=== PATIENT | female | born 1960 | race Caucasian/White ===

== ENCOUNTER 2021-10-16 21:51 | Emergency (ER) | payer OTHER, SELFPAY ==
[2021-10-16] VITALS (10 sets, daily range): BP systolic 80–142; BP diastolic 31–92; PULSE 65–90; RESP 18–37; O2SAT 94–100
[2021-10-16] MEDS: LORazepam 2 MG/ML inj 1 MG IVP (22:00)
--- NOTE | 2021-10-16 22:00 | CRLHL7_ITS ---
For Patients: As a result of the Cures Act, medical imaging exams and procedure reports are released immediately into your electronic medical record. You may view this report before your referring provider. If you have questions, please contact your health care provider. INDICATION: Shortness of breath, compare to chest radiograph 2020 and 2018, Short of breath TECHNIQUE: Chest radiograph 1 view COMPARISON: 08/24/2020, 08/09/2018 FINDINGS: The sensitivity and specificity of the exam are moderately limited by the patient`s body habitus. Mediastinum: The mediastinum is normal in appearance. The heart silhouette is normal in size and morphology. There is a left cardiac pacer present with leads in the right atrium and right ventricle. Right Port-A-Cath is noted without change. Lung: Both lungs are unremarkable in appearance with small lung volumes. The right apex obscured by the patient`s chin. No sign of pleural effusion seen. No pneumothorax is identified. Bone and Soft tissue: Unremarkable for age. IMPRESSION: 1. No acute cardiopulmonary disease is seen. Dictated by Dayo Simental MD @ 10/16/2021 11:09:43 PM Dictated by: Dayo Simental MD @ 10/16/2021 23:09:51 (Electronically Signed)
--- NOTE | 2021-10-16 22:00 | ED.SOB ---
HPI - SOB/Dyspnea General Date Seen: 10/16/21 Chief Complaint: Shortness of Breath/Dyspnea Stated Complaint: Respiratory distress Time Seen by Provider: 10/16/21 21:59 Source: patient, family and EMS Mode of arrival: EMS Limitations: language barrier History of Present Illness HPI Narrative: Patient is 61-year-old female with the history of a panic attack that started approximately 30 minutes before being seen, she called EMS, she has had multiple of these before, the problem however is she has some really documented medical issues also. Took 0.5 mg of Ativan at home. EMS saw her, found her saturations to be in the 70% although they admit they were not a good wound waveform, associated with this they put her on 6 L oxygen and brought her here. I do find that she is breathing really rapidly, for me in the room moaning also. Daughter is here and is interpreting in [place]. She says that is pretty normal for her panic attacks, but usually on last 10-15 minutes. Her last 1 previous to this 1 is pretty well daily she has these episodes she takes her Ativan and that helps. Does seem to be longer. It does seem to be associated with shortness of breath, she has not had a fever she has been eating and drinking normally. She does have a history of cardiac issues had a pacemaker placed, also history of cancer, with metastases she believes to her brain. She has not been followed anywhere recently other than by Dr. Hines her oncologist in [place]. She usually goes to the [facility], but came here kit NICOLE elicited complaint: shortness of breath Pertinent past history: congestive heart failure Onset (ago): minute(s) Context: anxiety Timing: constant Severity: severe Known history of: congestive heart failure Associated symptoms: denies other symptoms Treatment prior to arrival: oxygen Related Data Allergies Allergy/AdvReac Type Severity Reaction Status Date / Time No Known Drug Allergies Allergy Verified 10/16/21 22:28 Review of Systems Status of ROS: Reports: unobtainable due to medical condition PFSH PFS Social History Smoking Status: Never smoker Do you use any of these nicotine containing products: None Second hand tobacco smoke exposure: No How often do you have a drink containing alcohol: never How often do you have six or more drinks on one occasion: Never AUDIT-C Alcohol total score: 0 Non-prescribed substance use: denies use Exam Narrative: Exam Narrative: Patient is 61-year-old female presenting here by EMS for acute shortness of breath. She had her normal panic attack at home, but this lasted longer than normal, EMS was contacted and they found her saturations initially to be 75%, admit that they did not get a good waveform. She was placed on 6 L oxygen brought to the hospital here for further evaluation. Const: Vital Signs, click to edit/add: Vital Signs - 24 hr 10/16/21 21:56 10/16/21 22:02 10/16/21 22:10 Pulse Rate [Apical ] 90 80 79 Respiratory Rate 24 26 H 26 H Blood Pressure [[place] ft Forearm] 108/90 H 88/39 L 93/31 L Pulse Oximetry 97 10/16/21 22:19 10/16/21 22:25 10/16/21 22:50 Pulse Rate [Apical ] 80 79 73 Respiratory Rate 26 H 37 H 34 H Blood Pressure [[place] ft Forearm] 80/40 L 108/62 121/74 Pulse Oximetry 94 10/16/21 23:00 10/16/21 23:15 10/16/21 23:30 Pulse Rate [Apical ] 72 69 66 Respiratory Rate 22 19 19 Blood Pressure [[place] ft Forearm] 122/87 124/83 140/88 H Pulse Oximetry 99 100 10/16/21 23:45 10/17/21 00:00 10/17/21 00:20 Pulse Rate [Apical ] 65 68 65 Respiratory Rate 18 19 17 Blood Pressure [[place] ft Forearm] 142/92 H 115/40 L 105/38 L Pulse Oximetry 100 100 100 10/17/21 00:50 10/17/21 01:15 10/17/21 02:30 Pulse Rate [Apical ] 74 73 71 Respiratory Rate 27 H 32 H 17 Blood Pressure [[place] ft Forearm] 118/56 L 115/100 H 116/68 Pulse Oximetry 10/17/21 02:45 10/17/21 03:00 Pulse Rate [Apical ] 69 70 Respiratory Rate 15 16 Blood Pressure [[place] ft [place]arm] 97/53 L 90/57 L Pulse Oximetry 97 Documenting provider has reviewed patient's vital signs: yes Common normals: oriented x3 Exam limitations: language barrier General appearance: anxious and disheveled Nutritional appearance: overweight Orientation/consciousness: Yes oriented to person, Yes oriented to place and Yes oriented to time HENMT: Common normals: normocephalic, head/scalp atraumatic, hearing grossly normal bilaterally, external ears normal, EAC's normal, TM's normal bilaterally, external nose normal, nasal mucous membranes and turbinates normal, moist oral mucous membranes, oropharynx normal, dentition normal and gingiva normal Head and scalp: normocephalic and atraumatic Nose: external nose normal and nasal mucous membranes and turbinates normal External ear: external ears normal External auditory canal: EAC's normal Tympanic membrane: TM's normal bilaterally Eye: Common normals: PERRL, EOMs intact bilaterally, conjunctivae normal, no scleral icterus, no papilledema, normal visual diehl by confrontation and fundi normal bilaterally Conjunctiva: conjunctiva(e) normal Pupil: PERRL Direct Ophthalmoscopy: no papilledema and fundi normal bilaterally Neck & C-Spine: Common normals: full ROM, no lymphadenopathy, supple, no meningeal signs, thyroid normal and no carotid bruits Thyroid: thyroid normal Lymph: Lymphatic: no lymphadenopathy noted Resp: Common normals: clear to auscultation bilaterally and percussion normal Effort & inspection: able to speak in complete sentences, tachypneic and respiratory distress Auscultation: clear to auscultation bilaterally Percussion: percussion normal GI: Common normals: Normal to inspection, nondistended, normoactive bowel sounds present, soft to palpation, non-tender, no hepatosplenomegaly, no masses and no bruits Palpation: soft and no hepatosplenomegaly : Common normals: no CVA tenderness, external appearance normal, appearance of the vagina normal, appearance of the cervix normal, bimanual exam normal, adnexae non-tender and no adnexal masses Bladder/kidney exam: no CVA tenderness Bimanual exam- vagina & uterus: normal bimanual exam Back & Pelvis: Common normals: no CVA tenderness, thoracic and lumbar spine normal to inspection, no thoracic nor lumbar tenderness, thoraco-lumbar ROM normal and straight leg raise negative bilaterally Extremity: Common normals: normal to inspection, full ROM, normal capillary refill, no joint enlargement, no clubbing, cyanosis or edema, no calf tenderness and no pedal edema Neuro: Common normals: oriented x3 Sensorium/orientation: oriented to person, oriented to place and oriented to time Meningeal signs: no meningeal signs Skin: Common normals: no rashes or lesions noted, no wounds, skin turgor normal, no jaundice, no petechiae and no mottling General skin exam: no rashes or lesions noted and turgor normal Course Course Hospital Course: Because the labs were so abnormal for this patient I did redraw her. As I did not believe that initially this was an ABG, this is been dictated as showing a venous gas, as her ABG showed that she is mildly acidotic at 7.22, bicarb was slightly low, but her saturation on 4 L oxygen was 98%. Nor More concerning however is that her she is still hypokalemic, at 7. Given the fact that she is paced entirely, we cannot rely on the EKG, and I did order some calcium and some insulin for her. Her creatinine is elevated 2.4, unfortunately this mitigates against the a CT scan of her chest as this can cause and most likely would given her low GFR kidney failure. We do not have ability to do leg ultrasounds nor V/Q scans at this institution. Her respiratory status has improved with Lasix, and Ativan. We did have to give her 2nd D 50 is her glucose dropped to 49. [place] catheter will be placed to monitor her fluid status. She currently is sleeping, in the room, in no apparent distress. Vital Signs Vital signs: Initial Vital Signs Pulse Rate 90 10/16/21 21:56 Respiratory Rate 24 10/16/21 21:56 Respiratory Effort 10/16/21 21:56 Respiratory Depth Shallow 10/16/21 21:56 Respiratory Pattern 10/16/21 21:56 Blood Pressure 108/90 H 10/16/21 21:56 Blood Pressure Mean 96 10/16/21 21:56 Blood Pressure Position Supine 10/16/21 21:56 Vital Signs Pulse Rate 90 10/16/21 21:56 Respiratory Rate 24 10/16/21 21:56 Blood Pressure 108/90 H 10/16/21 21:56 Pulse Rate 70 10/17/21 03:00 Respiratory Rate 16 10/17/21 03:00 Blood Pressure 90/57 L 10/17/21 03:00 Pulse Oximetry 97 10/17/21 02:45 MDM - SOB/Dyspnea MDM Narrative Medical decision making narrative: Life-threatening differential diagnosis includes occluded COPD exacerbation, pulmonary edema, acute coronary syndromes, pulmonary embolism, pneumonia, and pneumothorax. Other differential diagnosis considerations include asthma, bronchitis as well as other etiologies. Patient received normal saline bolus here, then also Lasix, as I believe she has wet sound lungs, and evidence of congestive heart failure. Does seem very elevated, at 7.2 at 6.9 on repeat. Pressures now holding steady in the 90 on 57 range. O2 saturations 97% on room air. Did earlier on when her lactate came back elevated give her a dose of Zosyn along with blood cultures. Given her hyperkalemia, congestive heart failure, complicated medical history with cardiomyopathy, pacemaker, she will need tertiary help, I contacted the [facility] system, spoke to an ICU physician Dr. Duran at [facility] he accepted the patient in transfer, we talked about starting dobutamine, but he felt that could wait till he gets she gets to the ICU. Differential Diagnosis Differential diagnosis: Likely acute exacerbation of chronic obstructive airways disease, congestive heart failure, community acquired pneumonia, asthma with exacerbation and pulmonary embolism Medical Records Attestation: I reviewed the patient's medical records. Lab Data Attestation: I reviewed the patient's lab results. Labs: Lab Results 10/16/21 10/16/21 10/16/21 Range/Units 00:02 00:02 00:02 WBC 5.79 (4.50-11.00) K/uL RBC 2.68 L (4.00-5.20) m/uL Hgb 9.6 L (12.0-16.0) gm/dL Hct 31.3 L (33.0-51.0) % MCV 117 H (80-100) fL MCH 36 H (26-34) pg MCHC 31 L (32-36) gm/dL RDW Coeff of [place] 20.8 H (11.5-15.5) % Plt Count 52 L (140-440) K/uL Neut % (Auto) 70.1 (42.0-72.0) % Lymph % (Auto) 18.7 L (20-44) % [place] % (Auto) 9.3 (0.0-11.0) % Eos % (Auto) 0.0 (0.0-7.0) % Baso % (Auto) 0.2 (0.0-3.0) % Neut # (Auto) 4.06 (1.7-7.0) K/uL Lymph # (Auto) 1.10 (0.90-2.90) K/uL [place] # (Auto) 0.50 (0.00-0.90) K/UL Eos # (Auto) 0.00 (0.00-0.50) K/uL Baso # (Auto) 0.01 (0.00-0.30) K/uL Abs Immat Gran (auto) 0.10 (0.00-0.30) K/uL Diff Slide Review (Acceptable) INR (0.91-1.10) APTT 32 (23-33) Seconds D-Dimer Quant (PE/DVT) (0.00-0.50) ug/ml ABG pH (7.35-7.45) ABG pCO2 (35-45) mmHG ABG pO2 (80-105) mmHG ABG HCO3 (21-28) mmol/L ABG Total CO2 (21-30) mmol/l ABG O2 Saturation (92-100) % ABG Base Excess (-3.0-3.0) mmol/L Sodium 137 (135-149) mmol/L Potassium 7.5 H* (3.6-5.1) mmol/L Chloride 110 (96-114) mmol/L Carbon Dioxide 8 L* (20-32) mmol/L BUN 54 H (7-30) mg/dL Creatinine 2.4 H (0.5-1.5) mg/dL Estimated GFR 22 ml/min Glucose 64 (60-115) mg/dL Lactate (0.5-1.9) mmol/L Calcium 8.4 (8.4-10.6) mg/dL Troponin I (0.01-0.04) ng/mL NT-Pro-B Natriuret Pep (0-125) PG/mL SARS-CoV-2 (PCR) (Negative) Influenza Type A (PCR) (Negative) Influenza Type B (PCR) (Negative) RSV (PCR) (Negative) 10/16/21 10/16/21 10/16/21 Range/Units 00:02 22:01 22:01 WBC 5.62 (4.50-11.00) K/uL RBC 2.97 L (4.00-5.20) m/uL Hgb 10.5 L (12.0-16.0) gm/dL Hct 35.3 (33.0-51.0) % MCV 119 H (80-100) fL MCH 35 H (26-34) pg MCHC 30 L (32-36) gm/dL RDW Coeff of [place] 20.9 H (11.5-15.5) % Plt Count 62 L (140-440) K/uL Neut % (Auto) 47.3 (42.0-72.0) % Lymph % (Auto) 40.6 (20-44) % [place] % (Auto) 10.3 (0.0-11.0) % Eos % (Auto) 0.2 (0.0-7.0) % Baso % (Auto) 0.5 (0.0-3.0) % Neut # (Auto) 2.66 (1.7-7.0) K/uL Lymph # (Auto) 2.28 (0.90-2.90) K/uL [place] # (Auto) 0.60 (0.00-0.90) K/UL Eos # (Auto) 0.01 (0.00-0.50) K/uL Baso # (Auto) 0.03 (0.00-0.30) K/uL Abs Immat Gran (auto) 0.06 (0.00-0.30) K/uL Diff Slide Review Acceptable Review (Acceptable) INR (0.91-1.10) APTT (23-33) Seconds D-Dimer Quant (PE/DVT) (0.00-0.50) ug/ml ABG pH (7.35-7.45) ABG pCO2 (35-45) mmHG ABG pO2 (80-105) mmHG ABG HCO3 (21-28) mmol/L ABG Total CO2 (21-30) mmol/l ABG O2 Saturation (92-100) % ABG Base Excess (-3.0-3.0) mmol/L Sodium 138 (135-149) mmol/L Potassium 7.2 H* (3.6-5.1) mmol/L Chloride 111 (96-114) mmol/L Carbon Dioxide 6 L* (20-32) mmol/L BUN 52 H (7-30) mg/dL Creatinine 2.4 H (0.5-1.5) mg/dL Estimated GFR 22 ml/min Glucose 87 (60-115) mg/dL Lactate 8.7 H* (0.5-1.9) mmol/L Calcium 8.7 (8.4-10.6) mg/dL Troponin I (0.01-0.04) ng/mL NT-Pro-B Natriuret Pep (0-125) PG/mL SARS-CoV-2 (PCR) (Negative) Influenza Type A (PCR) (Negative) Influenza Type B (PCR) (Negative) RSV (PCR) (Negative) 10/16/21 10/16/21 10/16/21 Range/Units 22:01 22:50 22:50 WBC (4.50-11.00) K/uL RBC (4.00-5.20) m/uL Hgb (12.0-16.0) gm/dL Hct (33.0-51.0) % MCV (80-100) fL MCH (26-34) pg MCHC (32-36) gm/dL RDW Coeff of [place] (11.5-15.5) % Plt Count (140-440) K/uL Neut % (Auto) (42.0-72.0) % Lymph % (Auto) (20-44) % [place] % (Auto) (0.0-11.0) % Eos % (Auto) (0.0-7.0) % Baso % (Auto) (0.0-3.0) % Neut # (Auto) (1.7-7.0) K/uL Lymph # (Auto) (0.90-2.90) K/uL [place] # (Auto) (0.00-0.90) K/UL Eos # (Auto) (0.00-0.50) K/uL Baso # (Auto) (0.00-0.30) K/uL Abs Immat Gran (auto) (0.00-0.30) K/uL Diff Slide Review (Acceptable) INR 1.83 H (0.91-1.10) APTT 31 (23-33) Seconds D-Dimer Quant (PE/DVT) 6.13 H (0.00-0.50) ug/ml ABG pH 7.06 L* (7.35-7.45) ABG pCO2 29 L (35-45) mmHG ABG pO2 22.2 L* (80-105) mmHG ABG HCO3 8 L (21-28) mmol/L ABG Total CO2 8 L (21-30) mmol/l ABG O2 Saturation 18 L (92-100) % ABG Base Excess -20.7 L (-3.0-3.0) mmol/L Sodium (135-149) mmol/L Potassium (3.6-5.1) mmol/L Chloride (96-114) mmol/L Carbon Dioxide (20-32) mmol/L BUN (7-30) mg/dL Creatinine (0.5-1.5) mg/dL Estimated GFR ml/min Glucose (60-115) mg/dL Lactate 10.4 H* (0.5-1.9) mmol/L Calcium (8.4-10.6) mg/dL Troponin I 0.20 H* (0.01-0.04) ng/mL NT-Pro-B Natriuret Pep 30289 H (0-125) PG/mL SARS-CoV-2 (PCR) (Negative) Influenza Type A (PCR) (Negative) Influenza Type B (PCR) (Negative) RSV (PCR) (Negative) 10/16/21 10/16/21 10/17/21 Range/Units 22:51 23:57 02:00 WBC (4.50-11.00) K/uL RBC (4.00-5.20) m/uL Hgb (12.0-16.0) gm/dL Hct (33.0-51.0) % MCV (80-100) fL MCH (26-34) pg MCHC (32-36) gm/dL RDW Coeff of [place] (11.5-15.5) % Plt Count (140-440) K/uL Neut % (Auto) (42.0-72.0) % Lymph % (Auto) (20-44) % [place] % (Auto) (0.0-11.0) % Eos % (Auto) (0.0-7.0) % Baso % (Auto) (0.0-3.0) % Neut # (Auto) (1.7-7.0) K/uL Lymph # (Auto) (0.90-2.90) K/uL [place] # (Auto) (0.00-0.90) K/UL Eos # (Auto) (0.00-0.50) K/uL Baso # (Auto) (0.00-0.30) K/uL Abs Immat Gran (auto) (0.00-0.30) K/uL Diff Slide Review (Acceptable) INR (0.91-1.10) APTT (23-33) Seconds D-Dimer Quant (PE/DVT) (0.00-0.50) ug/ml ABG pH 7.22 L* (7.35-7.45) ABG pCO2 18 L* (35-45) mmHG ABG pO2 105.0 (80-105) mmHG ABG HCO3 7 L (21-28) mmol/L ABG Total CO2 7 L (21-30) mmol/l ABG O2 Saturation 98 (92-100) % ABG Base Excess -18.6 L (-3.0-3.0) mmol/L Sodium 137 (135-149) mmol/L Potassium 6.9 H* (3.6-5.1) mmol/L Chloride 111 (96-114) mmol/L Carbon Dioxide 9 L* (20-32) mmol/L BUN 52 H (7-30) mg/dL Creatinine 2.4 H (0.5-1.5) mg/dL Estimated GFR 22 ml/min Glucose 45 L* (60-115) mg/dL Lactate (0.5-1.9) mmol/L Calcium 8.3 L (8.4-10.6) mg/dL Troponin I (0.01-0.04) ng/mL NT-Pro-B Natriuret Pep (0-125) PG/mL SARS-CoV-2 (PCR) Negative SARS-CoV-2 (Negative) Influenza Type A (PCR) Negative PCR FLU A (Negative) Influenza Type B (PCR) Negative PCR FLU B (Negative) RSV (PCR) Negative PCR RSV (Negative) 10/17/21 Range/Units 02:00 WBC (4.50-11.00) K/uL RBC (4.00-5.20) m/uL Hgb (12.0-16.0) gm/dL Hct (33.0-51.0) % MCV (80-100) fL MCH (26-34) pg MCHC (32-36) gm/dL RDW Coeff of [place] (11.5-15.5) % Plt Count (140-440) K/uL Neut % (Auto) (42.0-72.0) % Lymph % (Auto) (20-44) % [place] % (Auto) (0.0-11.0) % Eos % (Auto) (0.0-7.0) % Baso % (Auto) (0.0-3.0) % Neut # (Auto) (1.7-7.0) K/uL Lymph # (Auto) (0.90-2.90) K/uL [place] # (Auto) (0.00-0.90) K/UL Eos # (Auto) (0.00-0.50) K/uL Baso # (Auto) (0.00-0.30) K/uL Abs Immat Gran (auto) (0.00-0.30) K/uL Diff Slide Review (Acceptable) INR (0.91-1.10) APTT (23-33) Seconds D-Dimer Quant (PE/DVT) (0.00-0.50) ug/ml ABG pH (7.35-7.45) ABG pCO2 (35-45) mmHG ABG pO2 (80-105) mmHG ABG HCO3 (21-28) mmol/L ABG Total CO2 (21-30) mmol/l ABG O2 Saturation (92-100) % ABG Base Excess (-3.0-3.0) mmol/L Sodium (135-149) mmol/L Potassium (3.6-5.1) mmol/L Chloride (96-114) mmol/L Carbon Dioxide (20-32) mmol/L BUN (7-30) mg/dL Creatinine (0.5-1.5) mg/dL Estimated GFR ml/min Glucose (60-115) mg/dL Lactate (0.5-1.9) mmol/L Calcium (8.4-10.6) mg/dL Troponin I 0.22 H* (0.01-0.04) ng/mL NT-Pro-B Natriuret Pep (0-125) PG/mL SARS-CoV-2 (PCR) (Negative) Influenza Type A (PCR) (Negative) Influenza Type B (PCR) (Negative) RSV (PCR) (Negative) ABG Data Attestation: I personally reviewed and interpreted this ABG as follows: Interpretation: Initially she had a venous gas, I did change this and read draw her, that showed she likely is slightly acidotic. Imaging Data Chest x-ray: Attestation: I have reviewed the pertinent imaging results. My impression: Chest x-ray shows mild to moderate streaking in the bases consistent with CHF Radiologist's impression: Patient: NAYAN HOWARD Facility:?[facility] Patient ID:?[id number] Site Patient ID:?[id number] Site :?[id number] Study:?XRay Chest AP PORTABLE-10/16/2021 10:41:39 PM Ordering Physician:Alex Durham Final Report: INDICATION: Shortness of breath, compare to chest radiograph 2020 and 2018, Short of breath TECHNIQUE: Chest radiograph 1 view COMPARISON: 08/24/2020, 08/09/2018 FINDINGS: The sensitivity and specificity of the exam are moderately limited by the patient`s body habitus. Mediastinum: The mediastinum is normal in appearance. The heart silhouette is normal in size and morphology. There is a left cardiac pacer present with leads in the right atrium and right ventricle. Right Port-A-Cath is noted without change. Lung: Both lungs are unremarkable in appearance with small lung volumes. The right apex obscured by the patient`s chin. No sign of pleural effusion seen. No pneumothorax is identified. Bone and Soft tissue: Unremarkable for age. IMPRESSION: 1. No acute cardiopulmonary disease is seen. Dictated by Dayo Simental MD @ 10/16/2021 11:09:[address] scan - head: Radiologist's impression: Patient: NAYAN HOWARD Facility:?[facility] Patient ID:?[id number] Site Patient ID:?[id number]. Site :?[id number] Study:?CT Head without contrast-10/17/2021 1:01:50 AM Ordering Physician:Alex Durham Final Report: INDICATION: Delirium. 2020, history of brain cancer, short of breath, delerium TECHNIQUE: CT Head without i.v. contrast. Coronal and sagittal reformats were obtained. COMPARISON: 08/25/2020 FINDINGS: CSF space: The ventricles are normal for age. Brain: No evidence of mass, acute infarction or hemorrhage is seen. No mass-effect or midline shift is seen. The brain parenchyma is otherwise normal in appearance with preservation of the krueger-white matter junction. Calvarium: The visualized paranasal sinuses are well aerated. The mastoid air cells are clear. The visualized orbits are grossly unremarkable. The calvarium is unremarkable in appearance with no fractures identified. IMPRESSION: 1. No evidence of acute infarction, intracranial hemorrhage, or mass-effect seen. Please note that all CT scans at this facility use dose modulation, iterative reconstruction, and/or weight-based dosing when appropriate to reduce radiation dose to as low as reasonably achievable. Dictated by: Dayo Simental MD @ 10/17/2021 01:14:34 (Electronic Signature) ECG Data ECG interpretation date: 10/17/21 Interpretation: Paced rhythm Critical Care Time Critical Care Time Critical Care Time: Yes Attestation: The patient required my highest level preparedness to intervene emergently and I personally spent this critical care time directly and personally managing the patient. This critical care time included: Obtaining a history; Examining the patient; Pulse oximetry; Ordering and reviewing of studies; Arranging urgent treatment with development of a management plan; Evaluation of patients response to treatment; Frequent reassessment discussions with other providers. This critical care time was performed to assess and manage the high probability of imminent life-threatening deterioration that could result in multiorgan failure. It was exclusive of separate billable procedures and treating other patients and teaching time. Total Critical Care Time in Minutes: 60 Discharge Plan Discharge Clinical Impression: Shortness of breath, Heart failure, Acidosis, Acute on chronic kidney failure, Acute hyperkalemia Patient Disposition: Xfer Other Discharge Location: [facility] Follow Up/Referrals: Provider,Not a Local [Primary Care Provider] - Stand Alone Forms: [employer] Info Instructions
[2021-10-16] MEDS: 0.9 % SODIUM CHLORIDE 500 ML 500 ML IV (22:15)
[2021-10-16 22:19] LABS: Basophils Absolute Auto 0.03 K/uL (0.00-0.30); Basophils Percent Auto 0.5 % (0.0-3.0); Eosinophils Absolute Auto 0.01 K/uL (0.00-0.50); Eosinophils Percent Auto 0.2 % (0.0-7.0); Hematocrit 35.3 % (33.0-51.0); Hemoglobin* 10.5 gm/dL (12.0-16.0); Immature Granulocytes Abs Auto 0.06 K/uL (0.00-0.30); Lymphocytes Absolute Auto 2.28 K/uL (0.90-2.90); Lymphocytes Percent Auto 40.6 % (20-44); Mean Corpuscular HGB Conc 30 gm/dL (32-36); Mean Corpuscular Hemoglobin 35 pg (26-34); Mean Corpuscular Volume 119 fL (80-100); Monocytes Percent Auto 10.3 % (0.0-11.0); Neutrophils Absolute Auto 2.66 K/uL (1.7-7.0); Neutrophils Percent Auto 47.3 % (42.0-72.0); Platelet Count* 62 K/uL (140-440); RDW Coefficient of Variation % 20.9 % (11.5-15.5); Red Blood Count 2.97 m/uL (4.00-5.20); White Blood Count* 5.62 K/uL (4.50-11.00)
[2021-10-16] MEDS: 0.9 % SODIUM CHLORIDE 1000 ml 1,000 ML IV (22:30)
[2021-10-16 22:39] LABS: Chloride* 111 mmol/L (96-114); Sodium* 138 mmol/L (135-149)
[2021-10-16 22:42] LABS: Creatinine* 2.4 mg/dL (0.5-1.5); Estimated Glomerular Filt Rate 22 ml/min
[2021-10-16 22:43] LABS: Blood Urea Nitrogen* 52 mg/dL (7-30); Calcium* 8.7 mg/dL (8.4-10.6); Glucose* 87 mg/dL (60-115)
[2021-10-16 22:56] LABS: ABG PCO2 29 mmHG (35-45); Base Excess ABG -20.7 mmol/L (-3.0-3.0); HCO3 ABG 8 mmol/L (21-28); Oxygen Saturation ABG 18 % (92-100); TCO2 ABG 8 mmol/l (21-30)
--- NOTE | 2021-10-16 23:01 | CRLHL7_ITS ---
For Patients: As a result of the Century Cures Act, medical imaging exams and procedure reports are released immediately into your electronic medical record. You may view this report before your referring provider. If you have questions, please contact your health care provider. INDICATION: Delirium. 2020, history of brain cancer, short of breath, delerium TECHNIQUE: CT Head without i.v. contrast. Coronal and sagittal reformats were obtained. COMPARISON: 08/25/2020 FINDINGS: CSF space: The ventricles are normal for age. Brain: No evidence of mass, acute infarction or hemorrhage is seen. No mass-effect or midline shift is seen. The brain parenchyma is otherwise normal in appearance with preservation of the krueger-white matter junction. Calvarium: The visualized paranasal sinuses are well aerated. The mastoid air cells are clear. The visualized orbits are grossly unremarkable. The calvarium is unremarkable in appearance with no fractures identified. IMPRESSION: 1. No evidence of acute infarction, intracranial hemorrhage, or mass-effect seen. Please note that all CT scans at this facility use dose modulation, iterative reconstruction, and/or weight-based dosing when appropriate to reduce radiation dose to as low as reasonably achievable. Dictated by: Dayo Simental MD @ 10/17/2021 01:14:34 (Electronically Signed)
[2021-10-16 23:04] LABS: NT Pro B Type NatriureticPept* 26800 PG/mL (0-125)
[2021-10-16 23:07] LABS: Carbon Dioxide* 6 mmol/L (20-32); Potassium* 7.2 mmol/L (3.6-5.1)
[2021-10-16 23:07] LABS: PO2 ABG 22.2 mmHG (80-105); pH ABG 7.06 (7.35-7.45)
[2021-10-16 23:08] LABS: Slide Review Reflex Yes
[2021-10-16 23:09] LABS: Lactate* 10.4 mmol/L (0.5-1.9)
--- NOTE | 2021-10-16 23:10 | PC.NURSE ---
Critical lab values from lab. Dr. Ribera notified of these values.
[2021-10-16 23:29] LABS: Slide Review Acceptable Review (Acceptable)
[2021-10-16 23:30] LABS: INR 1.83 (0.91-1.10); Partial Thromboplastin Time* 31 Seconds (23-33); Prothrombin Time 21.6 Seconds
[2021-10-16 23:42] LABS: D Dimer Quantitative* 6.13 ug/ml (0.00-0.50)
[2021-10-16 23:52] LABS: PCR FLU A Negative PCR FLU A (Negative); PCR FLU B Negative PCR FLU B (Negative); PCR RSV Negative PCR RSV (Negative)
[2021-10-17] VITALS (19 sets, daily range): BP systolic 84–118; BP diastolic 38–100; PULSE 65–80; RESP 14–32; TEMP 36.4; O2SAT 93–100
[2021-10-17 00:08] LABS: SARS PCR* Negative SARS-CoV-2 (Negative)
[2021-10-17 00:11] LABS: Basophils Absolute Auto 0.01 K/uL (0.00-0.30); Basophils Percent Auto 0.2 % (0.0-3.0); Hematocrit 31.3 % (33.0-51.0); Hemoglobin* 9.6 gm/dL (12.0-16.0); Lymphocytes Percent Auto 18.7 % (20-44); Mean Corpuscular HGB Conc 31 gm/dL (32-36); Mean Corpuscular Hemoglobin 36 pg (26-34); Mean Corpuscular Volume 117 fL (80-100); Monocytes Percent Auto 9.3 % (0.0-11.0); Neutrophils Absolute Auto 4.06 K/uL (1.7-7.0); Neutrophils Percent Auto 70.1 % (42.0-72.0); Platelet Count* 52 K/uL (140-440); RDW Coefficient of Variation % 20.8 % (11.5-15.5); Red Blood Count 2.68 m/uL (4.00-5.20); White Blood Count* 5.79 K/uL (4.50-11.00)
[2021-10-17 00:11] LABS: Base Excess ABG -18.6 mmol/L (-3.0-3.0); HCO3 ABG 7 mmol/L (21-28); Oxygen Saturation ABG 98 % (92-100); TCO2 ABG 7 mmol/l (21-30)
[2021-10-17 00:14] LABS: ABG PCO2 18 mmHG (35-45); pH ABG 7.22 (7.35-7.45)
[2021-10-17 00:16] LABS: Lactate* 8.7 mmol/L (0.5-1.9); Slide Review Reflex No
[2021-10-17 00:28] LABS: Chloride* 110 mmol/L (96-114); Sodium* 137 mmol/L (135-149)
[2021-10-17 00:31] LABS: Blood Urea Nitrogen* 54 mg/dL (7-30); Creatinine* 2.4 mg/dL (0.5-1.5); Estimated Glomerular Filt Rate 22 ml/min; Glucose* 64 mg/dL (60-115)
[2021-10-17 00:32] LABS: Calcium* 8.4 mg/dL (8.4-10.6)
[2021-10-17 00:34] LABS: Carbon Dioxide* 8 mmol/L (20-32); Potassium* 7.5 mmol/L (3.6-5.1)
[2021-10-17] MEDS: 0.9 % SODIUM CHLORIDE 500 ML 500 ML IV (00:45)
[2021-10-17 00:46] LABS: Partial Thromboplastin Time* 32 Seconds (23-33)
--- NOTE | 2021-10-17 01:52 | W.PC.EDHO ---
Primary Language: Preferred Language: Orientation Status: [X] Alert & Oriented [] Slight Confusion [] Known Dx Dementia Transfers By: [X] Assist of 1 [] Assist of 2 [] Lift Active Medications Discontinued Medications Generic Name Dose Route Start Last Admin Trade Name Vincent PRN Reason Stop Dose Admin Lorazepam 1 mg 10/16/21 21:59 10/16/21 22:00 Lorazepam 2 Mg/Ml Inj IVP 10/16/21 22:00 1 mg ONCE STA Administration Description of Symptoms ED Triage Present Problem pt arrives by EMS with complaints of dyspnea, Description chest pain and panic attacks. daughter states she received a call from mother's boyfriend that patient was having a panic attack, took 0.5mg Ativan prior to EMS arrival, found sitting on the floor hyperventilating. history of cancer, most recently brain tumor and pacer placement, daughter states patient has been hallucinating since pacer . ED Triage Date of Onset of 10/16/21 Symptoms Female History Patient No Oxygen Administration Pulse Oximetry 97 Oxygen Delivery Method Nasal Cannula Oxygen Delivery Method Nasal Cannula Oxygen Delivery Method Nasal Cannula Oxygen Flow Rate 4 Oxygen Flow Rate 4 Oxygen Flow Rate 4 Cardiac Monitoring EKG Method 12 Lead EKG Method 12 Lead
[2021-10-17] MEDS: PIPERACILLIN/TAZOBACTAM 3.375 GM in 0.9 % SODIUM CHLORIDE Mini-bag 100 ML IVPB (02:18)
[2021-10-17] MEDS: DEXTROSE 50 % SYRINGE IVP ×2 (02:18→03:28)
[2021-10-17 02:37] LABS: Chloride* 111 mmol/L (96-114); Sodium* 137 mmol/L (135-149)
[2021-10-17 02:40] LABS: Blood Urea Nitrogen* 52 mg/dL (7-30); Creatinine* 2.4 mg/dL (0.5-1.5); Estimated Glomerular Filt Rate 22 ml/min
[2021-10-17 02:41] LABS: Calcium* 8.3 mg/dL (8.4-10.6)
[2021-10-17 02:45] LABS: Carbon Dioxide* 9 mmol/L (20-32); Glucose* 45 mg/dL (60-115); Potassium* 6.9 mmol/L (3.6-5.1)
[2021-10-17] MEDS: FUROSEMIDE 10 MG/ML inj 40 MG IV (03:28)
[2021-10-17 03:32] LABS: Troponin I* 0.22 ng/mL (0.01-0.04)
--- NOTE | 2021-10-17 04:17 | PC.NURSE ---
Report called to STACY Matt at [facility]. Will call for transport and then let Jose know an ETA.
[2021-10-17 04:46] LABS: Chloride* 113 mmol/L (96-114); Potassium* 5.3 mmol/L (3.6-5.1); Sodium* 138 mmol/L (135-149)
[2021-10-17 04:49] LABS: Blood Urea Nitrogen* 52 mg/dL (7-30); Carbon Dioxide* 10 mmol/L (20-32); Creatinine* 2.3 mg/dL (0.5-1.5); Estimated Glomerular Filt Rate 24 ml/min; Glucose* 99 mg/dL (60-115)
[2021-10-17 04:50] LABS: Calcium* 8.4 mg/dL (8.4-10.6)
--- NOTE | 2021-10-17 05:12 | PC.NURSE ---
Jose updated on ETA of patient being transported on 0600 truck. Also updated that a dobutamine drip will be started.
[2021-10-17] MEDS: DOBUTamine 250 MG in 5 % DEXTROSE 250 ML 230 ML 23.52 MG IVPB (05:26)
--- NOTE | 2021-10-17 06:24 | PC.NURSE ---
Report given to EMS for transport to [facility]. Daughter Ankita updated on plan to transfer.
== END 2021-10-17 06:30 | disposition other institution (70) ==
PROVIDERS: Emergency Provider Family Medicine
DX: R06.02 Shortness of breath (principal); I50.9 Heart failure, unspecified; Z95.0 Presence of cardiac pacemaker; N17.9 Acute kidney failure, unspecified; N18.9 Chronic kidney disease, unspecified; E87.5 Hyperkalemia; C80.1 Malignant (primary) neoplasm, unspecified; C79.31 Secondary malignant neoplasm of brain
CPT/HCPCS: 36415; 36600; 70450; 71045; 80048; 82803; 83605; 83880; 84484; 85025; 85379; 85610; 85730; 87040; 87502; 87634; 87635; 93005; 99285; 99291; A0425; A0427; A0434; J0610; J1250; J1940; J2060; J2543; J7030; J7050; J7120

== ENCOUNTER 2021-12-22 00:48 | Emergency (ER) | payer OTHER, SELFPAY ==
[2021-12-22] VITALS (70 sets, daily range): BP systolic 61–159; BP diastolic 29–102; PULSE 98–107; RESP 22–28; TEMP 35.7–36.1; O2SAT 90–100
--- NOTE | 2021-12-22 01:06 | CRLHL7_ITS ---
For Patients: As a result of the Century Cures Act, medical imaging exams and procedure reports are released immediately into your electronic medical record. You may view this report before your referring provider. If you have questions, please contact your health care provider. HISTORY: Epigastric pain. COMPARISON: Portable chest from 10/16/2021. FINDINGS: A portable erect AP view of the chest was obtained at 0135 hours. Again seen is a right internal jugular infusion port with its tip in satisfactory position in the superior vena cava at the cavoatrial junction. There is no sign of pneumothorax on the right. The lungs remain clear. No focal or diffuse infiltrates are present. The heart is mildly enlarged. Again seen is a left sided pacemaker with leads entering the left subclavian vein and terminating in the right atrium and right ventricle. The mediastinum is otherwise normal in appearance. The osseous structures are normal in appearance for the patient`s age. IMPRESSION: Stable mild cardiomegaly. Otherwise no active disease seen in the chest. Dictated by Vishal Eason MD @ 12/22/2021 1:46:50 AM (Electronically Signed)
--- NOTE | 2021-12-22 01:06 | CRLHL7_ITS ---
For Patients: As a result of the Century Cures Act, medical imaging exams and procedure reports are released immediately into your electronic medical record. You may view this report before your referring provider. If you have questions, please contact your health care provider. INDICATION: Altered mental status. History of brain cancer. COMPARISON: CT of the head without contrast from 10/17/2021. TECHNIQUE: CT examination of the head was performed with 3 mm thick axial and 2 mm thick coronal and sagittal sections without intravenous contrast. Images were obtained from the vertex of the skull through the skull base, and I examined the images with the brain and bone windows. Please note that all CT scans at this facility use dose modulation, iterative reconstruction, and/or weight-based dosing when appropriate to reduce radiation dose to as low as reasonably achievable. FINDINGS: There is stable mild dilatation of the ventricles and sulci representing age-appropriate atrophy. There is stable moderate periventricular and subcortical white matter hypodensity representing age-appropriate small vessel ischemia. The brain is otherwise normal in appearance for the patient`s age on today`s study, with no sign of mass lesion, mass effect, hemorrhage, or edema. The visualized portions of the orbits are normal in appearance. The visualized paranasal sinuses and mastoids are clear. The osseous structures are normal in their appearance with no sign of abnormality in the skull base or calvarium. IMPRESSION: Normal noncontrast CT of the head for the patient`s age. Stable mild, age-appropriate atrophy and moderate, age-appropriate small-vessel ischemic change. No sign of residual or recurrent malignancy in the brain. Please note that all CT scans at this facility use dose modulation, iterative reconstruction, and/or weight-based dosing when appropriate to reduce radiation dose to as low as reasonably achievable. Dictated by Vishal Eason MD @ 12/22/2021 2:55:48 AM (Electronically Signed)
--- NOTE | 2021-12-22 01:11 | ED_ITS ---
HPI - Abdominal Pain General Chief Complaint: Abdominal Pain Stated Complaint: pain Time Seen by Provider: 12/22/21 01:06 Source: patient, family and EMS Mode of arrival: EMS Limitations: language barrier History of Present Illness HPI narrative: Family reports with a described as a ?panic attack? for the last 3 hours. Prompting them to call EMS. They report a similar episode back in September. I have reviewed these notes and see that she was found to be hyperkalemic, acidotic. She had episodes of hypoxia which are not currently present. Ultimately, she was transferred for further evaluation. Underlying suspicion for pneumonia, COPD exacerbation, other issues. Family states that she has been fairly stable over the last several days, no major changes until 3 hours prior to presentation. She has not been exhibiting vomiting or fevers her appetite has been decreased. She is very frequently anxious to this is not bat atypical for her but the duration of the episode is worrisome. They deny any symptoms of infection, no recent sepsis. Family states that after the last episode in September, she was taken off of her lorazepam as thought that this was contributing to her symptoms, she did not take any medi cations today for the anxiety. I do review the medications brought with her as well. Family and patient deny any trauma or injury. Patient is admittedly restless and a little combative at the time of arrival, they were similar for EMS. She use initially fixated on demanding pain medication, not answering questions, crying out frequently. She is clearly in freely moving all extremities and other than seeming to be in emotional distress I cannot localize any other obvious injury. She shows signs of retching frequently and then switch is quickly to fixate on asking for water, no longer bringing up pain but in the similar perseverant fashion. When she does complain of pain, she points to the diffuse upper abdominal area, does not describe quality for me. She does not localize the pain even in July repeat attempts to clarify. EMS reporting that she was initially hypotensive for them and they did observe some transient hypoxia. Blood pressures normalized without interventions, they were unable to place an IV. They recommended urgent evaluation upon arrival and this was done. Family lets me know that she has a notable history of esophageal cancer, ovarian cancer. She had a brain tumor related to these cancers last year for which she underwent radiation, sounds like the frontal lobe area. She has not had a recent CT scan or any imaging regarding these. Her medical care is typically through the [facility] system, we have limited records because of this. She also has a notable history of heart disease, has a pacemaker in place which is not new. It sounds as though she has had heart failure in the past and has required diuresis. Family is concerned that potentially this could be going on as well but she has not been complaining of chest pain or showing any significant shortness of breath. She has some swelling in her legs but they do believe that this is an ongoing issue. No fevers, no intoxication. An foreign language interpreter is used to communicate with patient throughout the entire encounter, but patient does not initially offer any additional history that is useful. Past medical history notable for the ovarian cancer, esophageal cancer as above, pacemaker, prior history of heart failure, prior cholecystectomy. Social history is negative for substances or intoxication. Surgical history notable for resection of the above cancers, pacemaker placement, cholecystectomy. Remainder of family history, problems reviewed from her prior notes. Related Data Home Medications Medication Instructions Recorded Confirmed levetiracetam 1,000 mg tablet 1,000 mg PO BID 12/22/21 12/22/21 orphenadrine citrate 100 mg 100 mg PO BID PRN 12/22/21 12/22/21 tablet,extended release potassium chloride 10 mEq 10 meq PO BID 12/22/21 12/22/21 tablet,extended release(part/cryst) sertraline 50 mg tablet 50 mg PO HS 12/22/21 12/22/21 torsemide 10 mg tablet 10 mg PO DAILY 12/22/21 12/22/21 Allergies Allergy/AdvReac Type Severity Reaction Status Date / Time No Known Drug Allergies Allergy Verified 12/22/21 01:46 Review of Systems Narrative ROS was attempted times 12 systems, deemed initially unreliable. Family reporting only the panic symptoms and decreased appetite and frequent anxiety, the anxiety is not atypical for patient but the duration of symptoms today is atypical but similar to her episode in September. [facility] Medical History (Updated 12/22/21 @ 01:13 by Ashley Bell MD) Anxiety Cancer of brain treated with radiation therapy History of esophageal cancer History of ovarian cancer Pacemaker Surgical History (Updated 12/22/21 @ 01:13 by Ashley Bell MD) H/O: hysterectomy History of cholecystectomy Social History Smoking Status: Never smoker Do you use any of these nicotine containing products: None Second hand tobacco smoke exposure: No How often do you have a drink containing alcohol: never How often do you have six or more drinks on one occasion: Never AUDIT-C Alcohol total score: 0 Non-prescribed substance use: denies use Exam Const: Vital Signs, click to edit/add: Vital Signs - 24 hr 12/22/21 00:50 12/22/21 01:35 12/22/21 01:45 Temperature 96.5 F L Pulse Rate [Apical ] 102 H 101 H 101 H Respiratory Rate 28 H 24 24 Blood Pressure [Le ft Upper Arm] Blood Pressure [Ri ght Upper Arm] 114/80 98/87 101/70 Pulse Oximetry 94 94 93 Oxygen Delivery Me thod Nasal Cannula Nasal Cannula Nasal Cannula Oxygen Flow Rate 4 2 12/22/21 02:15 12/22/21 02:30 12/22/21 02:45 Temperature Pulse Rate [Apical ] 98 98 98 Respiratory Rate 24 24 24 Blood Pressure [Le ft Upper Arm] Blood Pressure [Ri ght Upper Arm] 108/75 110/84 93/80 Pulse Oximetry 96 90 93 Oxygen Delivery Me thod Room Air Room Air Room Air Oxygen Flow Rate 12/22/21 03:00 12/22/21 03:15 12/22/21 03:30 Temperature Pulse Rate [Apical ] 98 98 98 Respiratory Rate 24 24 24 Blood Pressure [Le ft Upper Arm] Blood Pressure [Ri ght Upper Arm] 106/77 107/77 102/81 Pulse Oximetry 96 96 97 Oxygen Delivery Me thod Room Air Room Air Room Air Oxygen Flow Rate 12/22/21 03:45 12/22/21 04:00 12/22/21 04:15 Temperature 97.0 F L Pulse Rate [Apical ] 99 99 99 Respiratory Rate 22 22 22 Blood Pressure [Le ft Upper Arm] Blood Pressure [Ri ght Upper Arm] 104/80 110/59 L 101/72 Pulse Oximetry 98 97 96 Oxygen Delivery Me thod Room Air Room Air Room Air Oxygen Flow Rate 12/22/21 04:45 12/22/21 05:00 12/22/21 05:15 Temperature 96.2 F L Pulse Rate [Apical ] 102 H 101 H 98 Respiratory Rate 22 22 22 Blood Pressure [Le ft Upper Arm] Blood Pressure [Ri ght Upper Arm] 153/75 H 159/63 H 148/41 H Pulse Oximetry 95 95 97 Oxygen Delivery Me thod Room Air Room Air Room Air Oxygen Flow Rate 12/22/21 06:30 12/22/21 06:49 Temperature Pulse Rate [Apical ] 102 H 103 H Respiratory Rate 22 22 Blood Pressure [Le ft Upper Arm] 96/72 95/78 Blood Pressure [Ri ght Upper Arm] Pulse Oximetry 96 96 Oxygen Delivery Me thod Room Air Room Air Oxygen Flow Rate Documenting provider has reviewed patient's vital signs: yes Exam limitations: altered mental status Other: Patient initially uncooperative, retching, not following commands well. Panting type hyperventilation. This does improve quite a bit after administration of 0.5 mg lorazepam sublingually. After this, we were able to place an IV, draw labs. Her color does appear somewhat pale and slightly [place] with dry lips. Vital signs reviewed, when we get a good waveform, her pulse is in the 90s though the EKG does show 115. She is in a paced rhythm. We are not seeing any persistent hypoxia though her oxygen saturations do drop but not with good waveform on initial exam. HENMT: Common normals: normocephalic and head/scalp atraumatic Head and scalp: normocephalic and atraumatic Face and sinus: normal facial exam Other: Dry mucous membranes with no oral ulcers. No swelling of the pharynx or tongue. Eye: Common normals: PERRL, conjunctivae normal and no scleral icterus Conjunctiva: conjunctiva(e) normal Pupil: PERRL Neck & C-Spine: Common normals: full ROM, no lymphadenopathy, supple, no meningeal signs and thyroid normal Thyroid: thyroid normal Chest: Common normals: inspection of chest normal and palpation of chest normal Resp: Other: Initial hyperventilation improved somewhat with lorazepam. Expiratory panting noted. Breath sounds are a little decreased at the bases but no obvious crackles or wheeze. Cardio: Other: Mild tachycardia in the 90s but with positive S1 and S2 and no obvious murmurs. GI: Other: Abdomen is soft, no localizing tenderness. No masses. Surgical scarring noted, none recent. Liver and spleen are not enlarged. Abdomen is nondistended with normoactive bowel sounds. Back & Pelvis: Common normals: thoracic and lumbar spine normal to inspection Extremity: Other: The lower extremities have a trace to 1+ edema to the knee. There are no effusions to the wrists knees or ankles. She moves all her extremities freely. Neuro: Meningeal signs: no meningeal signs Other: Restless and combative initially but moving all 4 extremities, is able to speak in complete [place]ian sentences and does understand quite a bit of my Urdu requires frequent redirection. Psych: Other: Anxious and restless, limited insight and judgment initially. Well groomed. Skin: Common normals: no rashes or lesions noted General skin exam: no rashes or lesions noted Course Vital Signs Vital signs: Initial Vital Signs Temperature 96.5 F L 12/22/21 00:50 Temperature Source Temporal Artery Scan 12/22/21 00:50 Pulse Rate 102 H 12/22/21 00:50 Respiratory Rate 28 H 12/22/21 00:50 Blood Pressure 114/80 12/22/21 00:50 Blood Pressure Mean 91 12/22/21 00:50 Blood Pressure Position Supine 12/22/21 00:50 Pulse Oximetry 94 12/22/21 00:50 Oxygen Delivery Method 12/22/21 00:50 Vital Signs Temperature 96.5 F L 12/22/21 00:50 Pulse Rate 102 H 12/22/21 00:50 Respiratory Rate 28 H 12/22/21 00:50 Blood Pressure 114/80 12/22/21 00:50 Pulse Oximetry 94 12/22/21 00:50 Oxygen Delivery Method 12/22/21 00:50 Temperature 96.2 F L 12/22/21 05:15 Pulse Rate 103 H 12/22/21 06:49 Respiratory Rate 22 12/22/21 06:49 Blood Pressure 95/78 12/22/21 06:49 Pulse Oximetry 96 12/22/21 06:49 Oxygen Delivery Method 12/22/21 06:49 Oxygen Flow Rate 2 12/22/21 01:45 MDM - Abdominal Pain MDM Narrative Medical decision making narrative: Prior abnormal labs noted. I think there is more going on here today than the simple panic attack that the family suspects. She showing some signs of dehydration and with her history of esophageal surgeries, brain radiation, she is very high risk for electrolyte abnormalities, acidosis, other complications. With her history of brain radiation, if she word exhibiting signs of sepsis or infection, these would not present normally. Differential diagnosis including bowel obstruction, appendicitis, panic attack, congestive heart failure, heart attack, recurrence of cancers, sepsis, electrolyte abnormality, intracranial hemorrhage from prior radiation, pancreatitis, among others. EKG is performed, per my interpretation showing a paced rhythm, the ST segments appear abnormal but the EKG is of significantly poor quality. [place] cannot be determined. Appears unchanged from 10/18/2021 scan which was taken on 10/16. 45 minutes of critical care time due to acuity and combativeness of patient initially. Severe initial acidosis with elevated lactate noted. Bolus of IV fluids ordered, but very poor IV access, still working on this. This will delay her receipt of proper fluid bolus in a timely fashion. We will continue to give IV fluids appropriately. Chest x-ray reviewed, per my interpretation, stable cardiomegaly with no obvious infiltrate. Electrolyte abnormalities noted. Respiratory rate is improving with IV fluids. Patient is more calm but still lacking insight, altered mental status secondary to critically acute illness. Repeating lactate and troponin soon. Continue IV fluids to correct dehydration and acidosis. Considering transfer, awaiting imaging studies. Discussion with family again, no one suspects any poisoning or intentional overdose on the patient's part. They state that she return from [place] on Monday which is a day and a half prior to presentation. She traveled with her boyfriend and does not sound as though he noted anything abnormal about her. She seems sad to be returning to [place] from [place] per the patient's daughter but this is not unusual for her after leaving her home state. On secondary discussion, daughter reports that mother started complaining of not feeling well about 2 hours after returning from the road trip, they attributed this to her not wanting to come back to [place]. Update 8 a.m.: Patient continues to be severely acidotic with elevated lactate of unknown etiology. Still suspecting toxic ingestion, but this may be as simple as her own medications in the setting of renal impairment, dehydration, poor nutritional intake the last several days while traveling. Family confirms that this was not intentional nor do they suspect any outside poisoning. She is not responding metabolically to IV fluids which is discouraging. I spoke with our hospitalist team for additional ideas, they were not able to come up with any additional etiology. I spoke with Dr. Schaeffer, roll winder at [facility]. He has accepted the patient for transfer and is given recommendations to start a bicarb drip. I will reduce her LR now 125 mL/hour and begin the bicarb drip at 75 mL/hour per his recommendation, confirm with pharmacy. We do have 2 IV lines at this point. Will be handing the care of the patient over to Dr. Nicholson. Patient remains delirious, bordering on obtunded. Pressures remain borderline, will not be starting dobutamine drip at this time but we are keeping this in our thoughts. UA reviewed, there is some bacteria mild leukocyte esterase emesis cath sample. Dr. Nicholson reports that he will be starting antibiotic therapy which I think is a good idea. We will also try a stress dose of steroids. Anticipate transfer delay of 428 hours based on bed availability. No beds were available within the [facility] system, [facility]. 2-1/2 hours were spent in transfer time today. Medical Records Attestation: I reviewed the patient's medical records. Lab Data Attestation: I reviewed the patient's lab results. Labs: Lab Results 12/22/21 12/22/21 12/22/21 Range/Units 01:30 01:30 01:30 WBC 4.19 L (4.50-11.00) K/uL Corrected WBC 3.61 L (4.50-11.00) K/UL RBC 3.12 L (4.00-5.20) m/uL Hgb 10.8 L (12.0-16.0) gm/dL Hct 35.3 (33.0-51.0) % MCV 113 H (80-100) fL MCH 35 H (26-34) pg MCHC 31 L (32-36) gm/dL RDW Coeff of [place] 19.2 H (11.5-15.5) % Plt Count 50 L (140-440) K/uL Neut % (Auto) 62.0 (42.0-72.0) % Lymph % (Auto) 25.0 (20-44) % [place] % (Auto) 11.0 (0.0-11.0) % Eos % (Auto) 0.0 (0.0-7.0) % Baso % (Auto) 0.0 (0.0-3.0) % Neut # (Auto) 2.20 (1.7-7.0) K/uL Lymph # (Auto) 0.90 (0.90-2.90) K/uL [place] # (Auto) 0.40 (0.00-0.90) K/UL Eos # (Auto) 0.00 (0.00-0.50) K/uL Baso # (Auto) 0.00 (0.00-0.30) K/uL Abs Immat Gran (auto) [employer] Neutrophils % (Manual) 62.0 (42.0-72.0) % Lymphocytes % (Manual) 25.0 (20.0-44.0) % Monocytes % (Manual) 11.0 (0-11) % Eosinophils % (Manual) 0.0 (0.0-7.0) % Basophils % (Manual) 0.0 (0.0-3.0) % Abs Neuts (Manual) 2.20 (1.70-7.00) K/uL Lymphocytes # (Manual) 0.90 (0.90-2.90) K/uL Monocytes # (Manual) 0.40 (0.00-0.90) K/uL Eosinophils # (Manual) 0.00 (0.00-0.50) K/uL Basophils # (Manual) 0.00 (0.00-0.30) K/uL Nucleated RBCs 16.0 H (0.0-0.1) K/uL Diff Slide Review Req Man Differential (Acceptable) VBG pH (7.32-7.43) VBG pCO2 (40-50) mmHG VBG pO2 (25-47) mmHG VBG HCO3 (21-28) mmol/L Carboxyhemoglobin (0.0-5.0) % Sodium 140 (135-149) mmol/L Potassium 6.0 H (3.6-5.1) mmol/L Chloride 108 (96-114) mmol/L Carbon Dioxide 7 L* (20-32) mmol/L BUN 37 H (7-30) mg/dL Creatinine 2.3 H (0.5-1.5) mg/dL Estimated GFR 24 ml/min Glucose 79 (60-115) mg/dL Lactate 11.5 H* (0.5-1.9) mmol/L Calcium 9.5 (8.4-10.6) mg/dL Total Bilirubin 1.8 H (0.1-1.5) mg/dL AST 106 H (12-35) U/L ALT 75 H (4-35) U/L Alkaline Phosphatase 129 (40-150) U/L NT-Pro-B Natriuret Pep 71595 H (0-125) PG/mL Total Protein 8.6 H (6.0-8.3) g/dL Albumin 4.4 (3.3-5.0) g/dL Lipase 122 (23-300) U/L Urine Color (Yellow) Urine Appearance (Clear) Urine pH (5.0-8.5) Ur Specific [place] (1.000-1.030) Urine Protein (Negative) Urine Glucose (UA) (Negative) Urine Ketones (Negative) Urine Blood (Negative) Urine Nitrite (Negative) Urine Bilirubin (Negative) Urine Urobilinogen (0.2-1.0) Ur Leukocyte Esterase (Negative) Urine RBC (0-2) Urine WBC (0-5) Ur Squamous Epith Cells (None-Few) Urine Bacteria (None) WBC Casts (None) Salicylates < 1.4 (1.0-10) mg/dL Urine Opiates Screen (Negative) Ur Oxycodone Screen (Negative) Urine Methadone Screen (Negative) Ur Propoxyphene Screen (Negative) Acetaminophen < 10.0 L (10.0-30.0) ug/mL Ur Barbiturates Screen (Negative) U Tricyclic Antidepress (Negative) Ur Phencyclidine Scrn (Negative) Ur Amphetamines Screen (Negative) U Methamphetamines Scrn (Negative) U Benzodiazepines Scrn (Negative) Urine Cocaine Screen (Negative) U Marijuana (THC) Screen (Negative) Ur Drug Screen Comment Ethyl Alcohol < 0.01 L (0.01-0.03) % SARS-CoV-2 (PCR) (Negative) POC Troponin I (0.01-0.04) ng/ml 12/22/21 12/22/21 12/22/21 Range/Units 01:30 01:30 01:30 WBC (4.50-11.00) K/uL Corrected WBC (4.50-11.00) K/UL RBC (4.00-5.20) m/uL Hgb (12.0-16.0) gm/dL Hct (33.0-51.0) % MCV (80-100) fL MCH (26-34) pg MCHC (32-36) gm/dL RDW Coeff of [place] (11.5-15.5) % Plt Count (140-440) K/uL Neut % (Auto) (42.0-72.0) % Lymph % (Auto) (20-44) % [place] % (Auto) (0.0-11.0) % Eos % (Auto) (0.0-7.0) % Baso % (Auto) (0.0-3.0) % Neut # (Auto) (1.7-7.0) K/uL Lymph # (Auto) (0.90-2.90) K/uL [place] # (Auto) (0.00-0.90) K/UL Eos # (Auto) (0.00-0.50) K/uL Baso # (Auto) (0.00-0.30) K/uL Abs Immat Gran (auto) Neutrophils % (Manual) (42.0-72.0) % Lymphocytes % (Manual) (20.0-44.0) % Monocytes % (Manual) (0-11) % Eosinophils % (Manual) (0.0-7.0) % Basophils % (Manual) (0.0-3.0) % Abs Neuts (Manual) (1.70-7.00) K/uL Lymphocytes # (Manual) (0.90-2.90) K/uL Monocytes # (Manual) (0.00-0.90) K/uL Eosinophils # (Manual) (0.00-0.50) K/uL Basophils # (Manual) (0.00-0.30) K/uL Nucleated RBCs (0.0-0.1) K/uL Diff Slide Review (Acceptable) VBG pH 7.010 L* (7.32-7.43) VBG pCO2 32 L (40-50) mmHG VBG pO2 33.5 (25-47) mmHG VBG HCO3 8 L (21-28) mmol/L Carboxyhemoglobin (0.0-5.0) % Sodium (135-149) mmol/L Potassium (3.6-5.1) mmol/L Chloride (96-114) mmol/L Carbon Dioxide (20-32) mmol/L BUN (7-30) mg/dL Creatinine (0.5-1.5) mg/dL Estimated GFR ml/min Glucose (60-115) mg/dL Lactate (0.5-1.9) mmol/L Calcium (8.4-10.6) mg/dL Total Bilirubin (0.1-1.5) mg/dL AST (12-35) U/L ALT (4-35) U/L Alkaline Phosphatase (40-150) U/L NT-Pro-B Natriuret Pep (0-125) PG/mL Total Protein (6.0-8.3) g/dL Albumin (3.3-5.0) g/dL Lipase (23-300) U/L Urine Color (Yellow) Urine Appearance (Clear) Urine pH (5.0-8.5) Ur Specific [place] (1.000-1.030) Urine Protein (Negative) Urine Glucose (UA) (Negative) Urine Ketones (Negative) Urine Blood (Negative) Urine Nitrite (Negative) Urine Bilirubin (Negative) Urine Urobilinogen (0.2-1.0) Ur Leukocyte Esterase (Negative) Urine RBC (0-2) Urine WBC (0-5) Ur Squamous Epith Cells (None-Few) Urine Bacteria (None) WBC Casts (None) Salicylates (1.0-10) mg/dL Urine Opiates Screen (Negative) Ur Oxycodone Screen (Negative) Urine Methadone Screen (Negative) Ur Propoxyphene Screen (Negative) Acetaminophen (10.0-30.0) ug/mL Ur Barbiturates Screen (Negative) U Tricyclic Antidepress (Negative) Ur Phencyclidine Scrn (Negative) Ur Amphetamines Screen (Negative) U Methamphetamines Scrn (Negative) U Benzodiazepines Scrn (Negative) Urine Cocaine Screen (Negative) U Marijuana (THC) Screen (Negative) Ur Drug Screen Comment Ethyl Alcohol (0.01-0.03) % SARS-CoV-2 (PCR) Negative SARS-CoV-2 (Negative) POC Troponin I 0.08 H (0.01-0.04) ng/ml 12/22/21 12/22/21 12/22/21 Range/Units 03:50 03:50 03:50 WBC (4.50-11.00) K/uL Corrected WBC (4.50-11.00) K/UL RBC (4.00-5.20) m/uL Hgb (12.0-16.0) gm/dL Hct (33.0-51.0) % MCV (80-100) fL MCH (26-34) pg MCHC (32-36) gm/dL RDW Coeff of [place] (11.5-15.5) % Plt Count (140-440) K/uL Neut % (Auto) (42.0-72.0) % Lymph % (Auto) (20-44) % [place] % (Auto) (0.0-11.0) % Eos % (Auto) (0.0-7.0) % Baso % (Auto) (0.0-3.0) % Neut # (Auto) (1.7-7.0) K/uL Lymph # (Auto) (0.90-2.90) K/uL [place] # (Auto) (0.00-0.90) K/UL Eos # (Auto) (0.00-0.50) K/uL Baso # (Auto) (0.00-0.30) K/uL Abs Immat Gran (auto) Neutrophils % (Manual) (42.0-72.0) % Lymphocytes % (Manual) (20.0-44.0) % Monocytes % (Manual) (0-11) % Eosinophils % (Manual) (0.0-7.0) % Basophils % (Manual) (0.0-3.0) % Abs Neuts (Manual) (1.70-7.00) K/uL Lymphocytes # (Manual) (0.90-2.90) K/uL Monocytes # (Manual) (0.00-0.90) K/uL Eosinophils # (Manual) (0.00-0.50) K/uL Basophils # (Manual) (0.00-0.30) K/uL Nucleated RBCs (0.0-0.1) K/uL Diff Slide Review (Acceptable) VBG pH 6.980 L* (7.32-7.43) VBG pCO2 25 L (40-50) mmHG VBG pO2 47.0 (25-47) mmHG VBG HCO3 6 L (21-28) mmol/L Carboxyhemoglobin (0.0-5.0) % Sodium (135-149) mmol/L Potassium (3.6-5.1) mmol/L Chloride (96-114) mmol/L Carbon Dioxide (20-32) mmol/L BUN (7-30) mg/dL Creatinine (0.5-1.5) mg/dL Estimated GFR ml/min Glucose (60-115) mg/dL Lactate 13.6 H* (0.5-1.9) mmol/L Calcium (8.4-10.6) mg/dL Total Bilirubin (0.1-1.5) mg/dL AST (12-35) U/L ALT (4-35) U/L Alkaline Phosphatase (40-150) U/L NT-Pro-B Natriuret Pep (0-125) PG/mL Total Protein (6.0-8.3) g/dL Albumin (3.3-5.0) g/dL Lipase (23-300) U/L Urine Color (Yellow) Urine Appearance (Clear) Urine pH (5.0-8.5) Ur Specific [place] (1.000-1.030) Urine Protein (Negative) Urine Glucose (UA) (Negative) Urine Ketones (Negative) Urine Blood (Negative) Urine Nitrite (Negative) Urine Bilirubin (Negative) Urine Urobilinogen (0.2-1.0) Ur Leukocyte Esterase (Negative) Urine RBC (0-2) Urine WBC (0-5) Ur Squamous Epith Cells (None-Few) Urine Bacteria (None) WBC Casts (None) Salicylates (1.0-10) mg/dL Urine Opiates Screen (Negative) Ur Oxycodone Screen (Negative) Urine Methadone Screen (Negative) Ur Propoxyphene Screen (Negative) Acetaminophen (10.0-30.0) ug/mL Ur Barbiturates Screen (Negative) U Tricyclic Antidepress (Negative) Ur Phencyclidine Scrn (Negative) Ur Amphetamines Screen (Negative) U Methamphetamines Scrn (Negative) U Benzodiazepines Scrn (Negative) Urine Cocaine Screen (Negative) U Marijuana (THC) Screen (Negative) Ur Drug Screen Comment Ethyl Alcohol (0.01-0.03) % SARS-CoV-2 (PCR) (Negative) POC Troponin I 0.07 H (0.01-0.04) ng/ml 12/22/21 12/22/21 12/22/21 Range/Units 06:25 06:25 06:25 WBC (4.50-11.00) K/uL Corrected WBC (4.50-11.00) K/UL RBC (4.00-5.20) m/uL Hgb (12.0-16.0) gm/dL Hct (33.0-51.0) % MCV (80-100) fL MCH (26-34) pg MCHC (32-36) gm/dL RDW Coeff of [place] (11.5-15.5) % Plt Count (140-440) K/uL Neut % (Auto) (42.0-72.0) % Lymph % (Auto) (20-44) % [place] % (Auto) (0.0-11.0) % Eos % (Auto) (0.0-7.0) % Baso % (Auto) (0.0-3.0) % Neut # (Auto) (1.7-7.0) K/uL Lymph # (Auto) (0.90-2.90) K/uL [place] # (Auto) (0.00-0.90) K/UL Eos # (Auto) (0.00-0.50) K/uL Baso # (Auto) (0.00-0.30) K/uL Abs Immat Gran (auto) Neutrophils % (Manual) (42.0-72.0) % Lymphocytes % (Manual) (20.0-44.0) % Monocytes % (Manual) (0-11) % Eosinophils % (Manual) (0.0-7.0) % Basophils % (Manual) (0.0-3.0) % Abs Neuts (Manual) (1.70-7.00) K/uL Lymphocytes # (Manual) (0.90-2.90) K/uL Monocytes # (Manual) (0.00-0.90) K/uL Eosinophils # (Manual) (0.00-0.50) K/uL Basophils # (Manual) (0.00-0.30) K/uL Nucleated RBCs (0.0-0.1) K/uL Diff Slide Review (Acceptable) VBG pH 6.997 L* (7.32-7.43) VBG pCO2 23 L (40-50) mmHG VBG pO2 45.9 (25-47) mmHG VBG HCO3 6 L (21-28) mmol/L Carboxyhemoglobin (0.0-5.0) % Sodium (135-149) mmol/L Potassium (3.6-5.1) mmol/L Chloride (96-114) mmol/L Carbon Dioxide (20-32) mmol/L BUN (7-30) mg/dL Creatinine (0.5-1.5) mg/dL Estimated GFR ml/min Glucose (60-115) mg/dL Lactate 13.2 H* (0.5-1.9) mmol/L Calcium (8.4-10.6) mg/dL Total Bilirubin (0.1-1.5) mg/dL AST (12-35) U/L ALT (4-35) U/L Alkaline Phosphatase (40-150) U/L NT-Pro-B Natriuret Pep (0-125) PG/mL Total Protein (6.0-8.3) g/dL Albumin (3.3-5.0) g/dL Lipase Cancelled (23-300) U/L Urine Color (Yellow) Urine Appearance (Clear) Urine pH (5.0-8.5) Ur Specific [place] (1.000-1.030) Urine Protein (Negative) Urine Glucose (UA) (Negative) Urine Ketones (Negative) Urine Blood (Negative) Urine Nitrite (Negative) Urine Bilirubin (Negative) Urine Urobilinogen (0.2-1.0) Ur Leukocyte Esterase (Negative) Urine RBC (0-2) Urine WBC (0-5) Ur Squamous Epith Cells (None-Few) Urine Bacteria (None) WBC Casts (None) Salicylates (1.0-10) mg/dL Urine Opiates Screen (Negative) Ur Oxycodone Screen (Negative) Urine Methadone Screen (Negative) Ur Propoxyphene Screen (Negative) Acetaminophen (10.0-30.0) ug/mL Ur Barbiturates Screen (Negative) U Tricyclic Antidepress (Negative) Ur Phencyclidine Scrn (Negative) Ur Amphetamines Screen (Negative) U Methamphetamines Scrn (Negative) U Benzodiazepines Scrn (Negative) Urine Cocaine Screen (Negative) U Marijuana (THC) Screen (Negative) Ur Drug Screen Comment Ethyl Alcohol (0.01-0.03) % SARS-CoV-2 (PCR) (Negative) POC Troponin I (0.01-0.04) ng/ml 12/22/21 12/22/21 12/22/21 Range/Units 06:26 07:25 08:01 WBC (4.50-11.00) K/uL Corrected WBC (4.50-11.00) K/UL RBC (4.00-5.20) m/uL Hgb (12.0-16.0) gm/dL Hct (33.0-51.0) % MCV (80-100) fL MCH (26-34) pg MCHC (32-36) gm/dL RDW Coeff of [place] (11.5-15.5) % Plt Count (140-440) K/uL Neut % (Auto) (42.0-72.0) % Lymph % (Auto) (20-44) % [place] % (Auto) (0.0-11.0) % Eos % (Auto) (0.0-7.0) % Baso % (Auto) (0.0-3.0) % Neut # (Auto) (1.7-7.0) K/uL Lymph # (Auto) (0.90-2.90) K/uL [place] # (Auto) (0.00-0.90) K/UL Eos # (Auto) (0.00-0.50) K/uL Baso # (Auto) (0.00-0.30) K/uL Abs Immat Gran (auto) Neutrophils % (Manual) (42.0-72.0) % Lymphocytes % (Manual) (20.0-44.0) % Monocytes % (Manual) (0-11) % Eosinophils % (Manual) (0.0-7.0) % Basophils % (Manual) (0.0-3.0) % Abs Neuts (Manual) (1.70-7.00) K/uL Lymphocytes # (Manual) (0.90-2.90) K/uL Monocytes # (Manual) (0.00-0.90) K/uL Eosinophils # (Manual) (0.00-0.50) K/uL Basophils # (Manual) (0.00-0.30) K/uL Nucleated RBCs (0.0-0.1) K/uL Diff Slide Review (Acceptable) VBG pH (7.32-7.43) VBG pCO2 (40-50) mmHG VBG pO2 (25-47) mmHG VBG HCO3 (21-28) mmol/L Carboxyhemoglobin (0.0-5.0) % Sodium (135-149) mmol/L Potassium (3.6-5.1) mmol/L Chloride (96-114) mmol/L Carbon Dioxide (20-32) mmol/L BUN (7-30) mg/dL Creatinine (0.5-1.5) mg/dL Estimated GFR ml/min Glucose (60-115) mg/dL Lactate (0.5-1.9) mmol/L Calcium (8.4-10.6) mg/dL Total Bilirubin (0.1-1.5) mg/dL AST (12-35) U/L ALT (4-35) U/L Alkaline Phosphatase (40-150) U/L NT-Pro-B Natriuret Pep (0-125) PG/mL Total Protein (6.0-8.3) g/dL Albumin (3.3-5.0) g/dL Lipase (23-300) U/L Urine Color Yellow (Yellow) Urine Appearance Cloudy A (Clear) Urine pH 7.0 (5.0-8.5) Ur Specific [place] 1.020 (1.000-1.030) Urine Protein 3+ A (Negative) Urine Glucose (UA) Negative (Negative) Urine Ketones Negative (Negative) Urine Blood 3+ A (Negative) Urine Nitrite Negative (Negative) Urine Bilirubin Negative (Negative) Urine Urobilinogen 0.2 (0.2-1.0) Ur Leukocyte Esterase 1+ A (Negative) Urine RBC 10-25 A (0-2) Urine WBC 10-25 A (0-5) Ur Squamous Epith Cells Few (None-Few) Urine Bacteria Many A (None) WBC Casts Few A (None) Salicylates (1.0-10) mg/dL Urine Opiates Screen Negative (Negative) Ur Oxycodone Screen Negative (Negative) Urine Methadone Screen Negative (Negative) Ur Propoxyphene Screen Negative (Negative) Acetaminophen (10.0-30.0) ug/mL Ur Barbiturates Screen Negative (Negative) U Tricyclic Antidepress Negative (Negative) Ur Phencyclidine Scrn Negative (Negative) Ur Amphetamines Screen Negative (Negative) U Methamphetamines Scrn Negative (Negative) U Benzodiazepines Scrn Negative (Negative) Urine Cocaine Screen Negative (Negative) U Marijuana (THC) Screen Negative (Negative) Ur Drug Screen Comment See Note Ethyl Alcohol (0.01-0.03) % SARS-CoV-2 (PCR) (Negative) POC Troponin I 0.06 H (0.01-0.04) ng/ml 12/22/21 Range/Units 08:01 WBC (4.50-11.00) K/uL Corrected WBC (4.50-11.00) K/UL RBC (4.00-5.20) m/uL Hgb (12.0-16.0) gm/dL Hct (33.0-51.0) % MCV (80-100) fL MCH (26-34) pg MCHC (32-36) gm/dL RDW Coeff of [place] (11.5-15.5) % Plt Count (140-440) K/uL Neut % (Auto) (42.0-72.0) % Lymph % (Auto) (20-44) % [place] % (Auto) (0.0-11.0) % Eos % (Auto) (0.0-7.0) % Baso % (Auto) (0.0-3.0) % Neut # (Auto) (1.7-7.0) K/uL Lymph # (Auto) (0.90-2.90) K/uL [place] # (Auto) (0.00-0.90) K/UL Eos # (Auto) (0.00-0.50) K/uL Baso # (Auto) (0.00-0.30) K/uL Abs Immat Gran (auto) Neutrophils % (Manual) (42.0-72.0) % Lymphocytes % (Manual) (20.0-44.0) % Monocytes % (Manual) (0-11) % Eosinophils % (Manual) (0.0-7.0) % Basophils % (Manual) (0.0-3.0) % Abs Neuts (Manual) (1.70-7.00) K/uL Lymphocytes # (Manual) (0.90-2.90) K/uL Monocytes # (Manual) (0.00-0.90) K/uL Eosinophils # (Manual) (0.00-0.50) K/uL Basophils # (Manual) (0.00-0.30) K/uL Nucleated RBCs (0.0-0.1) K/uL Diff Slide Review (Acceptable) VBG pH (7.32-7.43) VBG pCO2 (40-50) mmHG VBG pO2 (25-47) mmHG VBG HCO3 (21-28) mmol/L Carboxyhemoglobin 3.4 (0.0-5.0) % Sodium (135-149) mmol/L Potassium (3.6-5.1) mmol/L Chloride (96-114) mmol/L Carbon Dioxide (20-32) mmol/L BUN (7-30) mg/dL Creatinine (0.5-1.5) mg/dL Estimated GFR ml/min Glucose (60-115) mg/dL Lactate (0.5-1.9) mmol/L Calcium (8.4-10.6) mg/dL Total Bilirubin (0.1-1.5) mg/dL AST (12-35) U/L ALT (4-35) U/L Alkaline Phosphatase (40-150) U/L NT-Pro-B Natriuret Pep (0-125) PG/mL Total Protein (6.0-8.3) g/dL Albumin (3.3-5.0) g/dL Lipase (23-300) U/L Urine Color (Yellow) Urine Appearance (Clear) Urine pH (5.0-8.5) Ur Specific [place] (1.000-1.030) Urine Protein (Negative) Urine Glucose (UA) (Negative) Urine Ketones (Negative) Urine Blood (Negative) Urine Nitrite (Negative) Urine Bilirubin (Negative) Urine Urobilinogen (0.2-1.0) Ur Leukocyte Esterase (Negative) Urine RBC (0-2) Urine WBC (0-5) Ur Squamous Epith Cells (None-Few) Urine Bacteria (None) WBC Casts (None) Salicylates (1.0-10) mg/dL Urine Opiates Screen (Negative) Ur Oxycodone Screen (Negative) Urine Methadone Screen (Negative) Ur Propoxyphene Screen (Negative) Acetaminophen (10.0-30.0) ug/mL Ur Barbiturates Screen (Negative) U Tricyclic Antidepress (Negative) Ur Phencyclidine Scrn (Negative) Ur Amphetamines Screen (Negative) U Methamphetamines Scrn (Negative) U Benzodiazepines Scrn (Negative) Urine Cocaine Screen (Negative) U Marijuana (THC) Screen (Negative) Ur Drug Screen Comment Ethyl Alcohol (0.01-0.03) % SARS-CoV-2 (PCR) (Negative) POC Troponin I (0.01-0.04) ng/ml Discharge Plan Discharge Prescriptions: No Action potassium chloride 10 mEq tablet,ER particles/crystals 10 meq PO BID Label Comments: TAKE ONE TABLET BY MOUTH TWICE DAILY levetiracetam 1,000 mg tablet 1,000 mg PO BID Label Comments: TAKE ONE TABLET BY MOUTH TWICE DAILY orphenadrine citrate 100 mg tablet extended release 100 mg PO BID PRN Label Comments: take 1 tablet by mouth 2 times every day in the morning and evening as needed sertraline 50 mg tablet 50 mg PO HS Label Comments: TAKE ONE TABLET BY MOUTH ONE TIME DAILY AT BEDTIME torsemide 10 mg tablet 10 mg PO DAILY Label Comments: TAKE ONE TABLET BY MOUTH ONE TIME DAILY Follow Up/Referrals: Provider,Not a Local [Primary Care Provider] -
[2021-12-22] MEDS: 0.9 % SODIUM CHLORIDE 500 ML 500 ML IV (01:20)
[2021-12-22] MEDS: LORazepam 0.5 MG TABLET PO (01:30)
--- NOTE | 2021-12-22 01:44 | ED.NURSE ---
ipad historic interpreter was used until now, Pt agrees to have daughter interpret, witnessed by ipad diplomatic interpreter/translator.
[2021-12-22 01:46] LABS: Hematocrit 35.3 % (33.0-51.0); Hemoglobin* 10.8 gm/dL (12.0-16.0); Mean Corpuscular HGB Conc 31 gm/dL (32-36); Mean Corpuscular Hemoglobin 35 pg (26-34); Mean Corpuscular Volume 113 fL (80-100); Platelet Count* 50 K/uL (140-440); RDW Coefficient of Variation % 19.2 % (11.5-15.5); Red Blood Count 3.12 m/uL (4.00-5.20); White Blood Count* 4.19 K/uL (4.50-11.00)
[2021-12-22 01:50] LABS: Lactate* 11.5 mmol/L (0.5-1.9)
[2021-12-22 01:51] LABS: Slide Review Reflex Yes
--- NOTE | 2021-12-22 01:51 | ED.NURSE ---
two gold colored necklaces and one pair silver colored hoop earrings given to Pt daughter.
[2021-12-22 01:52] LABS: Troponin, Point-of-Care* 0.08 ng/ml (0.01-0.04)
[2021-12-22 02:00] LABS: HCO3 VBG 8 mmol/L (21-28); PCO2 VBG 32 mmHG (40-50); PO2 VBG 33.5 mmHG (25-47)
[2021-12-22 02:06] LABS: Albumin* 4.4 g/dL (3.3-5.0)
[2021-12-22 02:07] LABS: Chloride* 108 mmol/L (96-114); Sodium* 140 mmol/L (135-149)
[2021-12-22 02:09] LABS: Alkaline Phosphatase* 129 U/L (40-150); Aspartate Amino Transferase* 106 U/L (12-35); Bilirubin Total* 1.8 mg/dL (0.1-1.5); Blood Urea Nitrogen* 37 mg/dL (7-30); Creatinine* 2.3 mg/dL (0.5-1.5); Estimated Glomerular Filt Rate 24 ml/min; Lipase* 122 U/L (23-300); Total Protein* 8.6 g/dL (6.0-8.3)
[2021-12-22 02:10] LABS: Alanine Aminotransferase* 75 U/L (4-35); Calcium* 9.5 mg/dL (8.4-10.6); Glucose* 79 mg/dL (60-115); Salicylate* < 1.4 mg/dL (1.0-10)
[2021-12-22 02:13] LABS: Slide Review Req Man Differential (Acceptable)
[2021-12-22 02:14] LABS: Total Cells Counted 100
[2021-12-22 02:15] LABS: Corrected White Blood Count 3.61 K/UL (4.50-11.00)
[2021-12-22 02:17] LABS: Acetaminophen* < 10.0 ug/mL (10.0-30.0); Ethanol* < 0.01 % (0.01-0.03)
[2021-12-22 02:18] LABS: Carbon Dioxide* 7 mmol/L (20-32)
[2021-12-22 02:19] LABS: NT Pro B Type NatriureticPept* 26400 PG/mL (0-125)
[2021-12-22 02:22] LABS: SARS PCR* Negative SARS-CoV-2 (Negative)
--- NOTE | 2021-12-22 02:54 | CRLHL7_ITS ---
For Patients: As a result of the 21st Century Cures Act, medical imaging exams and procedure reports are released immediately into your electronic medical record. You may view this report before your referring provider. If you have questions, please contact your health care provider. INDICATION: Retching. History of brain cancer and cholecystectomy. Severe acidosis. COMPARISON: CT of the abdomen and pelvis with contrast from 11/06/2016. TECHNIQUE: CT examination of the abdomen and pelvis was performed without contrast enhancement using 3 mm thick axial sections from the lung bases through the pubic symphysis. Oral contrast was not administered. Please note that all CT scans at this facility use dose modulation, iterative reconstruction, and/or weight-based dosing when appropriate to reduce radiation dose to as low as reasonably achievable. FINDINGS: In the abdomen, the unenhanced liver, spleen, and adrenals are normal in appearance. There is new mild soft tissue stranding around the entire pancreas, raising the possibility of acute pancreatitis. The unenhanced kidneys are normal in appearance. Clips are again seen in the gall bladder fossa from cholecystectomy. There is no sign of biliary ductal dilatation. The abdominal aorta is normal in caliber with no sign of dilatation. There is no sign of retroperitoneal mass or adenopathy. There is a new mild infraumbilical hernia extending from the midline to the right paramedian upper pelvis, containing a few nondistended loops of small bowel. Small bowel proximal to the hernia is also nondistended. The stomach, the rest of the loops of small bowel, and colon in the abdomen are normal in appearance. There is new mild soft tissue stranding of the fat at the root of the mesentery, consistent with mesenteric panniculitis. There is no sign of any mass or lymphadenopathy. The previously seen nodularity of the omentum anterior to the ascending colon has resolved. There is nothing seen that would suggest peritoneal carcinomatosis. During the interval, the appendix has been removed. A surgical clip is seen in the area of the base of the appendix. The loops of small bowel, colon, and rectum in the pelvis are normal in appearance. The uterus is again seen to be absent and the adnexal regions are normal in appearance. The urinary bladder is normal in appearance. There is no sign of pelvic or inguinal mass or adenopathy. There is no sign of free air or free fluid in the abdomen or pelvis. The lung bases are clear. 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 There is stable mild joint space narrowing, consistent with mild primary osteoarthritis. IMPRESSION: New moderate sized fat containing infraumbilical midline hernia containing several loops of nondistended small bowel. This projects more to the right than the left. CT of the abdomen shows new soft tissue stranding around the pancreas, raising the possibility of acute pancreatitis. Recommend correlation with the laboratory examination. Again seen are changes of cholecystectomy with no sign of biliary ductal dilatation. Resolution of previously seen nodularity of the omentum anterior to the ascending colon. CT of the pelvis shows stable changes of hysterectomy. Please note that all CT scans at this facility use dose modulation, iterative reconstruction, and/or weight-based dosing when appropriate to reduce radiation dose to as low as reasonably achievable. Dictated by Vishal Eason MD @ 12/22/2021 5:53:11 AM (Electronically Signed)
[2021-12-22] MEDS: 0.9 % SODIUM CHLORIDE 1000 ml 1,000 ML 500 ML IV ×2 (03:50→05:50)
[2021-12-22 03:54] LABS: HCO3 VBG 6 mmol/L (21-28); PCO2 VBG 25 mmHG (40-50)
[2021-12-22 04:05] LABS: Lactate* 13.6 mmol/L (0.5-1.9)
--- NOTE | 2021-12-22 04:22 | ED.NURSE ---
call from lab ph and lactate, updated with trop level. ivf running in 24g iv, keep running as tolerated.
[2021-12-22 04:46] LABS: Troponin, Point-of-Care* 0.07 ng/ml (0.01-0.04)
--- NOTE | 2021-12-22 04:48 | ED.NURSE ---
no need to cath for urine per dr sloan
[2021-12-22 06:31] LABS: HCO3 VBG 6 mmol/L (21-28); PCO2 VBG 23 mmHG (40-50); PO2 VBG 45.9 mmHG (25-47)
[2021-12-22 06:34] LABS: pH VBG 6.997 (7.32-7.43)
[2021-12-22 06:35] LABS: Lactate* 13.2 mmol/L (0.5-1.9)
[2021-12-22 06:41] LABS: Troponin, Point-of-Care* 0.06 ng/ml (0.01-0.04)
--- NOTE | 2021-12-22 06:41 | ED.NURSE ---
call from lab, updated ph lactate, and recent temp and BP. temp 96-97, ok per . 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 Pt had earlier refused to have any blankets on
--- NOTE | 2021-12-22 07:00 | ED.NURSE ---
Assume care of the patient from STACY Mariscal.
--- NOTE | 2021-12-22 07:15 | ED.NURSE ---
[facility] ICU has accepted Patient. Per transfer center an ICU bed is 4-8hr await approx.
--- NOTE | 2021-12-22 07:30 | ED.NURSE ---
[place] cath placed per MD ordered. Patient. Draining small amount of raya colored urine. Sample obtained.
[2021-12-22 07:39] LABS: Appearance Urine Cloudy (Clear); Bilirubin Urine Negative (Negative); Blood Urine 3+ (Negative); Color Urine Yellow (Yellow); Glucose Urine Negative (Negative); Ketones Urine Negative (Negative); Leukocyte Esterase Urine 1+ (Negative); Nitrite Urine Negative (Negative); Protein Urine 3+ (Negative); Urobilinogen Urine 0.2 (0.2-1.0)
[2021-12-22 07:53] LABS: Amphetamine Screen Urine Negative (Negative); Barbiturate Screen Urine Negative (Negative); Benzodiazepines Screen Urine Negative (Negative); Cannabinoid Screen Urine Negative (Negative); Cocaine Screen Urine Negative (Negative); Methadone Screen Urine Negative (Negative); Methamphetamines Screen Urine Negative (Negative); Opiate Screen Urine Negative (Negative); Oxycodone Screen Urine Negative (Negative); Phencyclidine Screen Urine Negative (Negative); Tricyclic Antidepressant Urine Negative (Negative)
[2021-12-22 08:15] LABS: Carboxyhemoglobin* 3.4 % (0.0-5.0)
[2021-12-22 08:19] LABS: Bacteria Urine Many; Squamous Epithelial Cell Urine Few (None-Few)
[2021-12-22 08:21] LABS: White Blood Cell Casts Urine Few
[2021-12-22] MEDS: LACTATED RINGERS 1000 ML 1,000 ML 200 ML IV (08:22)
[2021-12-22] MEDS: THIAMINE 250 MG in 0.9 % SODIUM CHLORIDE 100 ml 100 ML 102.5 MG IVPB (08:56)
[2021-12-22] MEDS: PIPERACILLIN/TAZOBACTAM 3.375 GM in 0.9 % SODIUM CHLORIDE Mini-bag 100 ML IVPB (08:57)
[2021-12-22] MEDS: HYDROCORTISONE SOD SUCCINATE 50 MG/ML inj 100 MG IVP (08:57)
[2021-12-22] MEDS: LACTATED RINGERS 1000 ML 1,000 ML 125 ML IV (08:57)
--- NOTE | 2021-12-22 09:00 | ED.NURSE ---
IV in right hand infiltrated. Anesthesia called and 22 placed in right under side of wrist.
--- NOTE | 2021-12-22 10:00 | ED.NURSE ---
Dr Sun notified re: patients blood pressures. 80s-90s systolic
[2021-12-22 11:09] LABS: HCO3 VBG 6 mmol/L (21-28); PCO2 VBG 25 mmHG (40-50); PO2 VBG 64.1 mmHG (25-47)
[2021-12-22 11:15] LABS: Lactate* 13.2 mmol/L (0.5-1.9)
--- NOTE | 2021-12-22 11:15 | ED.NURSE ---
dr sharp aware of lactate of 13.2 and pH of 7.02.
--- NOTE | 2021-12-22 11:30 | ED.NURSE ---
IO placed by Dr Nicholson. NaCl started.
[2021-12-22 11:31] LABS: Chloride* 111 mmol/L (96-114); Sodium* 142 mmol/L (135-149)
[2021-12-22] MEDS: LORazepam 2 MG/ML inj 1 MG IVP (11:33)
[2021-12-22] MEDS: ONDANSETRON 2 MG/ML inj 4 MG IVP (11:33)
[2021-12-22 11:34] LABS: Creatinine* 2.2 mg/dL (0.5-1.5); Estimated Glomerular Filt Rate 25 ml/min
[2021-12-22 11:35] LABS: Blood Urea Nitrogen* 36 mg/dL (7-30); Calcium* 8.6 mg/dL (8.4-10.6)
--- NOTE | 2021-12-22 11:37 | ED_ITS ---
HPI - General Adult General Chief complaint: Abdominal Pain Stated complaint: pain Time Seen by Provider: 12/22/21 01:06 Source: patient, family and EMS Mode of arrival: EMS Limitations: language barrier Related Data Home Medications Medication Instructions Recorded Confirmed levetiracetam 1,000 mg tablet 1,000 mg PO BID 12/22/21 12/22/21 orphenadrine citrate 100 mg 100 mg PO BID PRN 12/22/21 12/22/21 tablet,extended release potassium chloride 10 mEq 10 meq PO BID 12/22/21 12/22/21 tablet,extended release(part/cryst) sertraline 50 mg tablet 50 mg PO HS 12/22/21 12/22/21 torsemide 10 mg tablet 10 mg PO DAILY 12/22/21 12/22/21 Allergies Allergy/AdvReac Type Severity Reaction Status Date / Time No Known Drug Allergies Allergy Verified 12/22/21 01:46 [facility] Medical History (Updated 12/22/21 @ 01:13 by Ashley Bell MD) Anxiety Cancer of brain treated with radiation therapy History of esophageal cancer History of ovarian cancer Pacemaker Surgical History (Updated 12/22/21 @ 01:13 by Ashley Bell MD) H/O: hysterectomy History of cholecystectomy Social History Smoking Status: Never smoker Do you use any of these nicotine containing products: None Second hand tobacco smoke exposure: No How often do you have a drink containing alcohol: never How often do you have six or more drinks on one occasion: Never AUDIT-C Alcohol total score: 0 Non-prescribed substance use: denies use service: No Exam Const: Vital Signs, click to edit/add: Vital Signs - 24 hr 12/22/21 00:50 12/22/21 01:35 12/22/21 01:45 Temperature 96.5 F L Pulse Rate Pulse Rate [Apical ] 102 H 101 H 101 H Respiratory Rate 28 H 24 24 Blood Pressure Blood Pressure [Le ft Upper Arm] Blood Pressure [Ri ght Upper Arm] 114/80 98/87 101/70 Pulse Oximetry 94 94 93 Oxygen Delivery Me thod Nasal Cannula Nasal Cannula Nasal Cannula Oxygen Flow Rate 4 2 12/22/21 02:15 12/22/21 02:30 12/22/21 02:45 Temperature Pulse Rate Pulse Rate [Apical ] 98 98 98 Respiratory Rate 24 24 24 Blood Pressure Blood Pressure [Le ft Upper Arm] Blood Pressure [Ri ght Upper Arm] 108/75 110/84 93/80 Pulse Oximetry 96 90 93 Oxygen Delivery Me thod Room Air Room Air Room Air Oxygen Flow Rate 12/22/21 03:00 12/22/21 03:15 12/22/21 03:30 Temperature Pulse Rate Pulse Rate [Apical ] 98 98 98 Respiratory Rate 24 24 24 Blood Pressure Blood Pressure [Le ft Upper Arm] Blood Pressure [Ri ght Upper Arm] 106/77 107/77 102/81 Pulse Oximetry 96 96 97 Oxygen Delivery Me thod Room Air Room Air Room Air Oxygen Flow Rate 12/22/21 03:45 12/22/21 04:00 12/22/21 04:15 Temperature 97.0 F L Pulse Rate Pulse Rate [Apical ] 99 99 99 Respiratory Rate 22 22 22 Blood Pressure Blood Pressure [Le ft Upper Arm] Blood Pressure [Ri ght Upper Arm] 104/80 110/59 L 101/72 Pulse Oximetry 98 97 96 Oxygen Delivery Me thod Room Air Room Air Room Air Oxygen Flow Rate 12/22/21 04:45 12/22/21 05:00 12/22/21 05:15 Temperature 96.2 F L Pulse Rate Pulse Rate [Apical ] 102 H 101 H 98 Respiratory Rate 22 22 22 Blood Pressure Blood Pressure [Le ft Upper Arm] Blood Pressure [Ri ght Upper Arm] 153/75 H 159/63 H 148/41 H Pulse Oximetry 95 95 97 Oxygen Delivery Me thod Room Air Room Air Room Air Oxygen Flow Rate 12/22/21 06:30 12/22/21 06:49 12/22/21 06:37 Temperature Pulse Rate 103 H Pulse Rate [Apical ] 102 H 103 H Respiratory Rate 22 22 Blood Pressure Blood Pressure [Le ft Upper Arm] 96/72 95/78 Blood Pressure [Ri ght Upper Arm] Pulse Oximetry 96 96 96 Oxygen Delivery Me thod Room Air Room Air Oxygen Flow Rate 12/22/21 06:45 12/22/21 06:53 12/22/21 07:00 Temperature Pulse Rate 103 H 103 H 103 H Pulse Rate [Apical ] Respiratory Rate Blood Pressure 95/78 Blood Pressure [Le ft Upper Arm] Blood Pressure [Ri ght Upper Arm] Pulse Oximetry 95 96 96 Oxygen Delivery Me thod Oxygen Flow Rate 12/22/21 07:15 12/22/21 07:23 12/22/21 07:30 Temperature Pulse Rate 103 H 103 H 102 H Pulse Rate [Apical ] Respiratory Rate Blood Pressure 92/78 Blood Pressure [Le ft Upper Arm] Blood Pressure [Ri ght Upper Arm] Pulse Oximetry 95 96 95 Oxygen Delivery Me thod Oxygen Flow Rate 12/22/21 07:32 12/22/21 07:45 12/22/21 07:47 Temperature Pulse Rate 102 H 102 H 102 H Pulse Rate [Apical ] Respiratory Rate Blood Pressure 91/41 L 94/65 Blood Pressure [Le ft Upper Arm] Blood Pressure [Ri ght Upper Arm] Pulse Oximetry 94 95 96 Oxygen Delivery Me thod Oxygen Flow Rate 12/22/21 08:00 12/22/21 08:02 12/22/21 08:15 Temperature Pulse Rate 104 H 104 H 103 H Pulse Rate [Apical ] Respiratory Rate Blood Pressure 93/69 Blood Pressure [Le ft Upper Arm] Blood Pressure [Ri ght Upper Arm] Pulse Oximetry 99 98 98 Oxygen Delivery Me thod Oxygen Flow Rate 12/22/21 08:17 12/22/21 08:30 12/22/21 08:32 Temperature Pulse Rate 103 H 104 H 104 H Pulse Rate [Apical ] Respiratory Rate Blood Pressure 99/55 L 106/56 L Blood Pressure [Le ft Upper Arm] Blood Pressure [Ri ght Upper Arm] Pulse Oximetry 98 98 98 Oxygen Delivery Me thod Oxygen Flow Rate 12/22/21 08:45 12/22/21 08:47 12/22/21 08:54 Temperature Pulse Rate 104 H 104 H 104 H Pulse Rate [Apical ] Respiratory Rate Blood Pressure 89/63 L 100/72 Blood Pressure [Le ft Upper Arm] Blood Pressure [Ri ght Upper Arm] Pulse Oximetry 98 97 97 Oxygen Delivery Me thod Oxygen Flow Rate 12/22/21 09:00 12/22/21 09:02 12/22/21 09:09 Temperature Pulse Rate 104 H 104 H 104 H Pulse Rate [Apical ] Respiratory Rate Blood Pressure 87/34 L 87/75 L Blood Pressure [Le ft Upper Arm] Blood Pressure [Ri ght Upper Arm] Pulse Oximetry 98 98 98 Oxygen Delivery Me thod Oxygen Flow Rate 12/22/21 09:11 12/22/21 09:15 12/22/21 09:22 Temperature Pulse Rate 103 H 104 H 104 H Pulse Rate [Apical ] Respiratory Rate Blood Pressure 90/74 82/43 L Blood Pressure [Le ft Upper Arm] Blood Pressure [Ri ght Upper Arm] Pulse Oximetry 97 99 99 Oxygen Delivery Me thod Oxygen Flow Rate 12/22/21 09:30 12/22/21 09:32 12/22/21 09:41 Temperature Pulse Rate 104 H 104 H 104 H Pulse Rate [Apical ] Respiratory Rate Blood Pressure 87/57 L 91/75 Blood Pressure [Le ft Upper Arm] Blood Pressure [Ri ght Upper Arm] Pulse Oximetry 100 100 99 Oxygen Delivery Me thod Oxygen Flow Rate 12/22/21 09:42 12/22/21 09:45 12/22/21 09:51 Temperature Pulse Rate 104 H 103 H 104 H Pulse Rate [Apical ] Respiratory Rate Blood Pressure 83/37 L Blood Pressure [Le ft Upper Arm] Blood Pressure [Ri ght Upper Arm] Pulse Oximetry 99 98 99 Oxygen Delivery Me thod Oxygen Flow Rate 12/22/21 10:00 12/22/21 10:02 12/22/21 10:11 Temperature Pulse Rate 104 H 104 H Pulse Rate [Apical ] Respiratory Rate Blood Pressure 92/69 86/67 L Blood Pressure [Le ft Upper Arm] Blood Pressure [Ri ght Upper Arm] Pulse Oximetry 99 99 Oxygen Delivery Me thod Oxygen Flow Rate 12/22/21 10:22 12/22/21 10:42 12/22/21 10:52 Temperature Pulse Rate Pulse Rate [Apical ] Respiratory Rate Blood Pressure 100/68 117/65 98/74 Blood Pressure [Le ft Upper Arm] Blood Pressure [Ri ght Upper Arm] Pulse Oximetry Oxygen Delivery Me thod Oxygen Flow Rate 12/22/21 11:13 12/22/21 11:14 12/22/21 11:15 Temperature Pulse Rate 106 H 107 H Pulse Rate [Apical ] Respiratory Rate Blood Pressure 61/42 L Blood Pressure [Le ft Upper Arm] Blood Pressure [Ri ght Upper Arm] Pulse Oximetry 100 99 Oxygen Delivery Me thod Oxygen Flow Rate 12/22/21 11:17 12/22/21 11:22 12/22/21 11:32 Temperature Pulse Rate Pulse Rate [Apical ] Respiratory Rate Blood Pressure 94/78 119/67 94/52 L Blood Pressure [Le ft Upper Arm] Blood Pressure [Ri ght Upper Arm] Pulse Oximetry Oxygen Delivery Me thod Oxygen Flow Rate 12/22/21 11:37 12/22/21 11:41 12/22/21 11:43 Temperature Pulse Rate Pulse Rate [Apical ] Respiratory Rate Blood Pressure 97/77 112/102 H 105/71 Blood Pressure [Le ft Upper Arm] Blood Pressure [Ri ght Upper Arm] Pulse Oximetry Oxygen Delivery Me thod Oxygen Flow Rate Course Vital Signs Vital signs: Initial Vital Signs Temperature 96.5 F L 12/22/21 00:50 Temperature Source Temporal Artery Scan 12/22/21 00:50 Pulse Rate 102 H 12/22/21 00:50 Respiratory Rate 28 H 12/22/21 00:50 Blood Pressure 114/80 12/22/21 00:50 Blood Pressure Mean 91 12/22/21 00:50 Blood Pressure Position Supine 12/22/21 00:50 Pulse Oximetry 94 12/22/21 00:50 Oxygen Delivery Method 12/22/21 00:50 Vital Signs Temperature 96.5 F L 12/22/21 00:50 Pulse Rate 102 H 12/22/21 00:50 Respiratory Rate 28 H 12/22/21 00:50 Blood Pressure 114/80 12/22/21 00:50 Pulse Oximetry 94 12/22/21 00:50 Oxygen Delivery Method 12/22/21 00:50 Temperature 96.2 F L 12/22/21 05:15 Pulse Rate 107 H 12/22/21 11:15 Respiratory Rate 22 12/22/21 06:49 Blood Pressure 105/71 12/22/21 11:43 Pulse Oximetry 99 12/22/21 11:15 Oxygen Delivery Method 12/22/21 06:49 Oxygen Flow Rate 2 12/22/21 01:45 Medical Decision Making [facility] Narrative Medical decision making narrative: Patient had a couple episodes of blood pressure in the 70s. She only has IVs that are too small gauge IVs that are running bicarb drip, and fluid, unfortunately her lactate remains elevated. She has responded more and is more awake now, but still appears to have delirium. The patient given antibiotics, IV hydrocortisone, will monitor for IV pressor need, will need additional IV access. Addendum: The patient under sterile conditions had a right tibial IO placed without difficulty good push fluid. It was secured. Will again attempt to get [facility] ICU to take the patient more promptly as I am fearing deterioration. Lab Data Labs: Lab Results 12/22/21 12/22/21 12/22/21 Range/Units 01:30 01:30 01:30 WBC 4.19 L (4.50-11.00) K/uL Corrected WBC 3.61 L (4.50-11.00) K/UL RBC 3.12 L (4.00-5.20) m/uL Hgb 10.8 L (12.0-16.0) gm/dL Hct 35.3 (33.0-51.0) % MCV 113 H (80-100) fL MCH 35 H (26-34) pg MCHC 31 L (32-36) gm/dL RDW Coeff of [place] 19.2 H (11.5-15.5) % Plt Count 50 L (140-440) K/uL Neut % (Auto) 62.0 (42.0-72.0) % Lymph % (Auto) 25.0 (20-44) % [place] % (Auto) 11.0 (0.0-11.0) % Eos % (Auto) 0.0 (0.0-7.0) % Baso % (Auto) 0.0 (0.0-3.0) % Neut # (Auto) 2.20 (1.7-7.0) K/uL Lymph # (Auto) 0.90 (0.90-2.90) K/uL [place] # (Auto) 0.40 (0.00-0.90) K/UL Eos # (Auto) 0.00 (0.00-0.50) K/uL Baso # (Auto) 0.00 (0.00-0.30) K/uL Abs Immat Gran (auto) [employer]AB[employer]IDE Neutrophils % (Manual) 62.0 (42.0-72.0) % Lymphocytes % (Manual) 25.0 (20.0-44.0) % Monocytes % (Manual) 11.0 (0-11) % Eosinophils % (Manual) 0.0 (0.0-7.0) % Basophils % (Manual) 0.0 (0.0-3.0) % Abs Neuts (Manual) 2.20 (1.70-7.00) K/uL Lymphocytes # (Manual) 0.90 (0.90-2.90) K/uL Monocytes # (Manual) 0.40 (0.00-0.90) K/uL Eosinophils # (Manual) 0.00 (0.00-0.50) K/uL Basophils # (Manual) 0.00 (0.00-0.30) K/uL Nucleated RBCs 16.0 H (0.0-0.1) K/uL Diff Slide Review Req Man Differential (Acceptable) VBG pH (7.32-7.43) VBG pCO2 (40-50) mmHG VBG pO2 (25-47) mmHG VBG HCO3 (21-28) mmol/L Carboxyhemoglobin (0.0-5.0) % Sodium 140 (135-149) mmol/L Potassium 6.0 H (3.6-5.1) mmol/L Chloride 108 (96-114) mmol/L Carbon Dioxide 7 L* (20-32) mmol/L BUN 37 H (7-30) mg/dL Creatinine 2.3 H (0.5-1.5) mg/dL Estimated GFR 24 ml/min Glucose 79 (60-115) mg/dL Lactate 11.5 H* (0.5-1.9) mmol/L Calcium 9.5 (8.4-10.6) mg/dL Total Bilirubin 1.8 H (0.1-1.5) mg/dL AST 106 H (12-35) U/L ALT 75 H (4-35) U/L Alkaline Phosphatase 129 (40-150) U/L NT-Pro-B Natriuret Pep 70879 H (0-125) PG/mL Total Protein 8.6 H (6.0-8.3) g/dL Albumin 4.4 (3.3-5.0) g/dL Lipase 122 (23-300) U/L Urine Color (Yellow) Urine Appearance (Clear) Urine pH (5.0-8.5) Ur Specific [place] (1.000-1.030) Urine Protein (Negative) Urine Glucose (UA) (Negative) Urine Ketones (Negative) Urine Blood (Negative) Urine Nitrite (Negative) Urine Bilirubin (Negative) Urine Urobilinogen (0.2-1.0) Ur Leukocyte Esterase (Negative) Urine RBC (0-2) Urine WBC (0-5) Ur Squamous Epith Cells (None-Few) Urine Bacteria (None) WBC Casts (None) Salicylates < 1.4 (1.0-10) mg/dL Urine Opiates Screen (Negative) Ur Oxycodone Screen (Negative) Urine Methadone Screen (Negative) Ur Propoxyphene Screen (Negative) Acetaminophen < 10.0 L (10.0-30.0) ug/mL Ur Barbiturates Screen (Negative) U Tricyclic Antidepress (Negative) Ur Phencyclidine Scrn (Negative) Ur Amphetamines Screen (Negative) U Methamphetamines Scrn (Negative) U Benzodiazepines Scrn (Negative) Urine Cocaine Screen (Negative) U Marijuana (THC) Screen (Negative) Ur Drug Screen Comment Ethyl Alcohol < 0.01 L (0.01-0.03) % SARS-CoV-2 (PCR) (Negative) POC Troponin I (0.01-0.04) ng/ml 12/22/21 12/22/21 12/22/21 Range/Units 01:30 01:30 01:30 WBC (4.50-11.00) K/uL Corrected WBC (4.50-11.00) K/UL RBC (4.00-5.20) m/uL Hgb (12.0-16.0) gm/dL Hct (33.0-51.0) % MCV (80-100) fL MCH (26-34) pg MCHC (32-36) gm/dL RDW Coeff of [place] (11.5-15.5) % Plt Count (140-440) K/uL Neut % (Auto) (42.0-72.0) % Lymph % (Auto) (20-44) % [place] % (Auto) (0.0-11.0) % Eos % (Auto) (0.0-7.0) % Baso % (Auto) (0.0-3.0) % Neut # (Auto) (1.7-7.0) K/uL Lymph # (Auto) (0.90-2.90) K/uL [place] # (Auto) (0.00-0.90) K/UL Eos # (Auto) (0.00-0.50) K/uL Baso # (Auto) (0.00-0.30) K/uL Abs Immat Gran (auto) Neutrophils % (Manual) (42.0-72.0) % Lymphocytes % (Manual) (20.0-44.0) % Monocytes % (Manual) (0-11) % Eosinophils % (Manual) (0.0-7.0) % Basophils % (Manual) (0.0-3.0) % Abs Neuts (Manual) (1.70-7.00) K/uL Lymphocytes # (Manual) (0.90-2.90) K/uL Monocytes # (Manual) (0.00-0.90) K/uL Eosinophils # (Manual) (0.00-0.50) K/uL Basophils # (Manual) (0.00-0.30) K/uL Nucleated RBCs (0.0-0.1) K/uL Diff Slide Review (Acceptable) VBG pH 7.010 L* (7.32-7.43) VBG pCO2 32 L (40-50) mmHG VBG pO2 33.5 (25-47) mmHG VBG HCO3 8 L (21-28) mmol/L Carboxyhemoglobin (0.0-5.0) % Sodium (135-149) mmol/L Potassium (3.6-5.1) mmol/L Chloride (96-114) mmol/L Carbon Dioxide (20-32) mmol/L BUN (7-30) mg/dL Creatinine (0.5-1.5) mg/dL Estimated GFR ml/min Glucose (60-115) mg/dL Lactate (0.5-1.9) mmol/L Calcium (8.4-10.6) mg/dL Total Bilirubin (0.1-1.5) mg/dL AST (12-35) U/L ALT (4-35) U/L Alkaline Phosphatase (40-150) U/L NT-Pro-B Natriuret Pep (0-125) PG/mL Total Protein (6.0-8.3) g/dL Albumin (3.3-5.0) g/dL Lipase (23-300) U/L Urine Color (Yellow) Urine Appearance (Clear) Urine pH (5.0-8.5) Ur Specific [place] (1.000-1.030) Urine Protein (Negative) Urine Glucose (UA) (Negative) Urine Ketones (Negative) Urine Blood (Negative) Urine Nitrite (Negative) Urine Bilirubin (Negative) Urine Urobilinogen (0.2-1.0) Ur Leukocyte Esterase (Negative) Urine RBC (0-2) Urine WBC (0-5) Ur Squamous Epith Cells (None-Few) Urine Bacteria (None) WBC Casts (None) Salicylates (1.0-10) mg/dL Urine Opiates Screen (Negative) Ur Oxycodone Screen (Negative) Urine Methadone Screen (Negative) Ur Propoxyphene Screen (Negative) Acetaminophen (10.0-30.0) ug/mL Ur Barbiturates Screen (Negative) U Tricyclic Antidepress (Negative) Ur Phencyclidine Scrn (Negative) Ur Amphetamines Screen (Negative) U Methamphetamines Scrn (Negative) U Benzodiazepines Scrn (Negative) Urine Cocaine Screen (Negative) U Marijuana (THC) Screen (Negative) Ur Drug Screen Comment Ethyl Alcohol (0.01-0.03) % SARS-CoV-2 (PCR) Negative SARS-CoV-2 (Negative) POC Troponin I 0.08 H (0.01-0.04) ng/ml 12/22/21 12/22/21 12/22/21 Range/Units 03:50 03:50 03:50 WBC (4.50-11.00) K/uL Corrected WBC (4.50-11.00) K/UL RBC (4.00-5.20) m/uL Hgb (12.0-16.0) gm/dL Hct (33.0-51.0) % MCV (80-100) fL MCH (26-34) pg MCHC (32-36) gm/dL RDW Coeff of [place] (11.5-15.5) % Plt Count (140-440) K/uL Neut % (Auto) (42.0-72.0) % Lymph % (Auto) (20-44) % [place] % (Auto) (0.0-11.0) % Eos % (Auto) (0.0-7.0) % Baso % (Auto) (0.0-3.0) % Neut # (Auto) (1.7-7.0) K/uL Lymph # (Auto) (0.90-2.90) K/uL [place] # (Auto) (0.00-0.90) K/UL Eos # (Auto) (0.00-0.50) K/uL Baso # (Auto) (0.00-0.30) K/uL Abs Immat Gran (auto) Neutrophils % (Manual) (42.0-72.0) % Lymphocytes % (Manual) (20.0-44.0) % Monocytes % (Manual) (0-11) % Eosinophils % (Manual) (0.0-7.0) % Basophils % (Manual) (0.0-3.0) % Abs Neuts (Manual) (1.70-7.00) K/uL Lymphocytes # (Manual) (0.90-2.90) K/uL Monocytes # (Manual) (0.00-0.90) K/uL Eosinophils # (Manual) (0.00-0.50) K/uL Basophils # (Manual) (0.00-0.30) K/uL Nucleated RBCs (0.0-0.1) K/uL Diff Slide Review (Acceptable) VBG pH 6.980 L* (7.32-7.43) VBG pCO2 25 L (40-50) mmHG VBG pO2 47.0 (25-47) mmHG VBG HCO3 6 L (21-28) mmol/L Carboxyhemoglobin (0.0-5.0) % Sodium (135-149) mmol/L Potassium (3.6-5.1) mmol/L Chloride (96-114) mmol/L Carbon Dioxide (20-32) mmol/L BUN (7-30) mg/dL Creatinine (0.5-1.5) mg/dL Estimated GFR ml/min Glucose (60-115) mg/dL Lactate 13.6 H* (0.5-1.9) mmol/L Calcium (8.4-10.6) mg/dL Total Bilirubin (0.1-1.5) mg/dL AST (12-35) U/L ALT (4-35) U/L Alkaline Phosphatase (40-150) U/L NT-Pro-B Natriuret Pep (0-125) PG/mL Total Protein (6.0-8.3) g/dL Albumin (3.3-5.0) g/dL Lipase (23-300) U/L Urine Color (Yellow) Urine Appearance (Clear) Urine pH (5.0-8.5) Ur Specific [place] (1.000-1.030) Urine Protein (Negative) Urine Glucose (UA) (Negative) Urine Ketones (Negative) Urine Blood (Negative) Urine Nitrite (Negative) Urine Bilirubin (Negative) Urine Urobilinogen (0.2-1.0) Ur Leukocyte Esterase (Negative) Urine RBC (0-2) Urine WBC (0-5) Ur Squamous Epith Cells (None-Few) Urine Bacteria (None) WBC Casts (None) Salicylates (1.0-10) mg/dL Urine Opiates Screen (Negative) Ur Oxycodone Screen (Negative) Urine Methadone Screen (Negative) Ur Propoxyphene Screen (Negative) Acetaminophen (10.0-30.0) ug/mL Ur Barbiturates Screen (Negative) U Tricyclic Antidepress (Negative) Ur Phencyclidine Scrn (Negative) Ur Amphetamines Screen (Negative) U Methamphetamines Scrn (Negative) U Benzodiazepines Scrn (Negative) Urine Cocaine Screen (Negative) U Marijuana (THC) Screen (Negative) Ur Drug Screen Comment Ethyl Alcohol (0.01-0.03) % SARS-CoV-2 (PCR) (Negative) POC Troponin I 0.07 H (0.01-0.04) ng/ml 12/22/21 12/22/21 12/22/21 Range/Units 06:25 06:25 06:25 WBC (4.50-11.00) K/uL Corrected WBC (4.50-11.00) K/UL RBC (4.00-5.20) m/uL Hgb (12.0-16.0) gm/dL Hct (33.0-51.0) % MCV (80-100) fL MCH (26-34) pg MCHC (32-36) gm/dL RDW Coeff of [place] (11.5-15.5) % Plt Count (140-440) K/uL Neut % (Auto) (42.0-72.0) % Lymph % (Auto) (20-44) % [place] % (Auto) (0.0-11.0) % Eos % (Auto) (0.0-7.0) % Baso % (Auto) (0.0-3.0) % Neut # (Auto) (1.7-7.0) K/uL Lymph # (Auto) (0.90-2.90) K/uL [place] # (Auto) (0.00-0.90) K/UL Eos # (Auto) (0.00-0.50) K/uL Baso # (Auto) (0.00-0.30) K/uL Abs Immat Gran (auto) Neutrophils % (Manual) (42.0-72.0) % Lymphocytes % (Manual) (20.0-44.0) % Monocytes % (Manual) (0-11) % Eosinophils % (Manual) (0.0-7.0) % Basophils % (Manual) (0.0-3.0) % Abs Neuts (Manual) (1.70-7.00) K/uL Lymphocytes # (Manual) (0.90-2.90) K/uL Monocytes # (Manual) (0.00-0.90) K/uL Eosinophils # (Manual) (0.00-0.50) K/uL Basophils # (Manual) (0.00-0.30) K/uL Nucleated RBCs (0.0-0.1) K/uL Diff Slide Review (Acceptable) VBG pH 6.997 L* (7.32-7.43) VBG pCO2 23 L (40-50) mmHG VBG pO2 45.9 (25-47) mmHG VBG HCO3 6 L (21-28) mmol/L Carboxyhemoglobin (0.0-5.0) % Sodium (135-149) mmol/L Potassium (3.6-5.1) mmol/L Chloride (96-114) mmol/L Carbon Dioxide (20-32) mmol/L BUN (7-30) mg/dL Creatinine (0.5-1.5) mg/dL Estimated GFR ml/min Glucose (60-115) mg/dL Lactate 13.2 H* (0.5-1.9) mmol/L Calcium (8.4-10.6) mg/dL Total Bilirubin (0.1-1.5) mg/dL AST (12-35) U/L ALT (4-35) U/L Alkaline Phosphatase (40-150) U/L NT-Pro-B Natriuret Pep (0-125) PG/mL Total Protein (6.0-8.3) g/dL Albumin (3.3-5.0) g/dL Lipase Cancelled (23-300) U/L Urine Color (Yellow) Urine Appearance (Clear) Urine pH (5.0-8.5) Ur Specific [place] (1.000-1.030) Urine Protein (Negative) Urine Glucose (UA) (Negative) Urine Ketones (Negative) Urine Blood (Negative) Urine Nitrite (Negative) Urine Bilirubin (Negative) Urine Urobilinogen (0.2-1.0) Ur Leukocyte Esterase (Negative) Urine RBC (0-2) Urine WBC (0-5) Ur Squamous Epith Cells (None-Few) Urine Bacteria (None) WBC Casts (None) Salicylates (1.0-10) mg/dL Urine Opiates Screen (Negative) Ur Oxycodone Screen (Negative) Urine Methadone Screen (Negative) Ur Propoxyphene Screen (Negative) Acetaminophen (10.0-30.0) ug/mL Ur Barbiturates Screen (Negative) U Tricyclic Antidepress (Negative) Ur Phencyclidine Scrn (Negative) Ur Amphetamines Screen (Negative) U Methamphetamines Scrn (Negative) U Benzodiazepines Scrn (Negative) Urine Cocaine Screen (Negative) U Marijuana (THC) Screen (Negative) Ur Drug Screen Comment Ethyl Alcohol (0.01-0.03) % SARS-CoV-2 (PCR) (Negative) POC Troponin I (0.01-0.04) ng/ml 12/22/21 12/22/21 12/22/21 Range/Units 06:26 07:25 08:01 WBC (4.50-11.00) K/uL Corrected WBC (4.50-11.00) K/UL RBC (4.00-5.20) m/uL Hgb (12.0-16.0) gm/dL Hct (33.0-51.0) % MCV (80-100) fL MCH (26-34) pg MCHC (32-36) gm/dL RDW Coeff of [place] (11.5-15.5) % Plt Count (140-440) K/uL Neut % (Auto) (42.0-72.0) % Lymph % (Auto) (20-44) % [place] % (Auto) (0.0-11.0) % Eos % (Auto) (0.0-7.0) % Baso % (Auto) (0.0-3.0) % Neut # (Auto) (1.7-7.0) K/uL Lymph # (Auto) (0.90-2.90) K/uL [place] # (Auto) (0.00-0.90) K/UL Eos # (Auto) (0.00-0.50) K/uL Baso # (Auto) (0.00-0.30) K/uL Abs Immat Gran (auto) Neutrophils % (Manual) (42.0-72.0) % Lymphocytes % (Manual) (20.0-44.0) % Monocytes % (Manual) (0-11) % Eosinophils % (Manual) (0.0-7.0) % Basophils % (Manual) (0.0-3.0) % Abs Neuts (Manual) (1.70-7.00) K/uL Lymphocytes # (Manual) (0.90-2.90) K/uL Monocytes # (Manual) (0.00-0.90) K/uL Eosinophils # (Manual) (0.00-0.50) K/uL Basophils # (Manual) (0.00-0.30) K/uL Nucleated RBCs (0.0-0.1) K/uL Diff Slide Review (Acceptable) VBG pH (7.32-7.43) VBG pCO2 (40-50) mmHG VBG pO2 (25-47) mmHG VBG HCO3 (21-28) mmol/L Carboxyhemoglobin (0.0-5.0) % Sodium (135-149) mmol/L Potassium (3.6-5.1) mmol/L Chloride (96-114) mmol/L Carbon Dioxide (20-32) mmol/L BUN (7-30) mg/dL Creatinine (0.5-1.5) mg/dL Estimated GFR ml/min Glucose (60-115) mg/dL Lactate (0.5-1.9) mmol/L Calcium (8.4-10.6) mg/dL Total Bilirubin (0.1-1.5) mg/dL AST (12-35) U/L ALT (4-35) U/L Alkaline Phosphatase (40-150) U/L NT-Pro-B Natriuret Pep (0-125) PG/mL Total Protein (6.0-8.3) g/dL Albumin (3.3-5.0) g/dL Lipase (23-300) U/L Urine Color Yellow (Yellow) Urine Appearance Cloudy A (Clear) Urine pH 7.0 (5.0-8.5) Ur Specific [place] 1.020 (1.000-1.030) Urine Protein 3+ A (Negative) Urine Glucose (UA) Negative (Negative) Urine Ketones Negative (Negative) Urine Blood 3+ A (Negative) Urine Nitrite Negative (Negative) Urine Bilirubin Negative (Negative) Urine Urobilinogen 0.2 (0.2-1.0) Ur Leukocyte Esterase 1+ A (Negative) Urine RBC 10-25 A (0-2) Urine WBC 10-25 A (0-5) Ur Squamous Epith Cells Few (None-Few) Urine Bacteria Many A (None) WBC Casts Few A (None) Salicylates (1.0-10) mg/dL Urine Opiates Screen Negative (Negative) Ur Oxycodone Screen Negative (Negative) Urine Methadone Screen Negative (Negative) Ur Propoxyphene Screen Negative (Negative) Acetaminophen (10.0-30.0) ug/mL Ur Barbiturates Screen Negative (Negative) U Tricyclic Antidepress Negative (Negative) Ur Phencyclidine Scrn Negative (Negative) Ur Amphetamines Screen Negative (Negative) U Methamphetamines Scrn Negative (Negative) U Benzodiazepines Scrn Negative (Negative) Urine Cocaine Screen Negative (Negative) U Marijuana (THC) Screen Negative (Negative) Ur Drug Screen Comment See Note Ethyl Alcohol (0.01-0.03) % SARS-CoV-2 (PCR) (Negative) POC Troponin I 0.06 H (0.01-0.04) ng/ml 12/22/21 12/22/21 12/22/21 Range/Units 08:01 11:02 11:02 WBC (4.50-11.00) K/uL Corrected WBC (4.50-11.00) K/UL RBC (4.00-5.20) m/uL Hgb (12.0-16.0) gm/dL Hct (33.0-51.0) % MCV (80-100) fL MCH (26-34) pg MCHC (32-36) gm/dL RDW Coeff of [place] (11.5-15.5) % Plt Count (140-440) K/uL Neut % (Auto) (42.0-72.0) % Lymph % (Auto) (20-44) % [place] % (Auto) (0.0-11.0) % Eos % (Auto) (0.0-7.0) % Baso % (Auto) (0.0-3.0) % Neut # (Auto) (1.7-7.0) K/uL Lymph # (Auto) (0.90-2.90) K/uL [place] # (Auto) (0.00-0.90) K/UL Eos # (Auto) (0.00-0.50) K/uL Baso # (Auto) (0.00-0.30) K/uL Abs Immat Gran (auto) Neutrophils % (Manual) (42.0-72.0) % Lymphocytes % (Manual) (20.0-44.0) % Monocytes % (Manual) (0-11) % Eosinophils % (Manual) (0.0-7.0) % Basophils % (Manual) (0.0-3.0) % Abs Neuts (Manual) (1.70-7.00) K/uL Lymphocytes # (Manual) (0.90-2.90) K/uL Monocytes # (Manual) (0.00-0.90) K/uL Eosinophils # (Manual) (0.00-0.50) K/uL Basophils # (Manual) (0.00-0.30) K/uL Nucleated RBCs (0.0-0.1) K/uL Diff Slide Review (Acceptable) VBG pH 7.020 L* (7.32-7.43) VBG pCO2 25 L (40-50) mmHG VBG pO2 64.1 H (25-47) mmHG VBG HCO3 6 L (21-28) mmol/L Carboxyhemoglobin 3.4 (0.0-5.0) % Sodium 142 (135-149) mmol/L Potassium 6.3 H* (3.6-5.1) mmol/L Chloride 111 (96-114) mmol/L Carbon Dioxide 6 L* (20-32) mmol/L BUN 36 H (7-30) mg/dL Creatinine 2.2 H (0.5-1.5) mg/dL Estimated GFR 25 ml/min Glucose < 20 L* (60-115) mg/dL Lactate 13.2 H* (0.5-1.9) mmol/L Calcium 8.6 (8.4-10.6) mg/dL Total Bilirubin (0.1-1.5) mg/dL AST (12-35) U/L ALT (4-35) U/L Alkaline Phosphatase (40-150) U/L NT-Pro-B Natriuret Pep (0-125) PG/mL Total Protein (6.0-8.3) g/dL Albumin (3.3-5.0) g/dL Lipase (23-300) U/L Urine Color (Yellow) Urine Appearance (Clear) Urine pH (5.0-8.5) Ur Specific [place] (1.000-1.030) Urine Protein (Negative) Urine Glucose (UA) (Negative) Urine Ketones (Negative) Urine Blood (Negative) Urine Nitrite (Negative) Urine Bilirubin (Negative) Urine Urobilinogen (0.2-1.0) Ur Leukocyte Esterase (Negative) Urine RBC (0-2) Urine WBC (0-5) Ur Squamous Epith Cells (None-Few) Urine Bacteria (None) WBC Casts (None) Salicylates (1.0-10) mg/dL Urine Opiates Screen (Negative) Ur Oxycodone Screen (Negative) Urine Methadone Screen (Negative) Ur Propoxyphene Screen (Negative) Acetaminophen (10.0-30.0) ug/mL Ur Barbiturates Screen (Negative) U Tricyclic Antidepress (Negative) Ur Phencyclidine Scrn (Negative) Ur Amphetamines Screen (Negative) U Methamphetamines Scrn (Negative) U Benzodiazepines Scrn (Negative) Urine Cocaine Screen (Negative) U Marijuana (THC) Screen (Negative) Ur Drug Screen Comment Ethyl Alcohol (0.01-0.03) % SARS-CoV-2 (PCR) (Negative) POC Troponin I (0.01-0.04) ng/ml Critical Care Time Critical Care Time Total Critical Care Time in Minutes: 240 Discharge Plan Discharge Prescriptions: No Action potassium chloride 10 mEq tablet,ER particles/crystals 10 meq PO BID Label Comments: TAKE ONE TABLET BY MOUTH TWICE DAILY levetiracetam 1,000 mg tablet 1,000 mg PO BID Label Comments: TAKE ONE TABLET BY MOUTH TWICE DAILY orphenadrine citrate 100 mg tablet extended release 100 mg PO BID PRN Label Comments: take 1 tablet by mouth 2 times every day in the morning and evening as needed sertraline 50 mg tablet 50 mg PO HS Label Comments: TAKE ONE TABLET BY MOUTH ONE TIME DAILY AT BEDTIME torsemide 10 mg tablet 10 mg PO DAILY Label Comments: TAKE ONE TABLET BY MOUTH ONE TIME DAILY Follow Up/Referrals: Provider,Not a Local [Primary Care Provider] -
[2021-12-22 11:42] LABS: Carbon Dioxide* 6 mmol/L (20-32); Glucose* < 20 mg/dL (60-115); Potassium* 6.3 mmol/L (3.6-5.1)
--- NOTE | 2021-12-22 11:45 | ED.NURSE ---
[facility] patient placement called. Updated on status. Requested to speak with [employer] Director.
[2021-12-22] MEDS: DEXTROSE 50 % SYRINGE IVP (11:48)
--- NOTE | 2021-12-22 11:48 | ED.NURSE ---
D50 amp given per order. BG recheck at [id number]
--- NOTE | 2021-12-22 11:55 | ED.NURSE ---
[facility] returning call.
--- NOTE | 2021-12-22 12:03 | ED.NURSE ---
Critical lab value called. notified. BG Less than 20. POC glucose rechecked. read- LO. notified. Ordered placed.
[2021-12-22] MEDS: DOBUTamine 250 MG in 5 % DEXTROSE 250 ML 230 ML 7.2 MG IVPB (12:20)
[2021-12-22] MEDS: 0.9 % SODIUM CHLORIDE 1000 ml 1,000 ML 6000 ML IV (12:57)
== END 2021-12-22 13:15 | disposition short-term general hospital (02) ==
PROVIDERS: Family Medicine; Emergency Provider Family Medicine
DX: E87.29 Other acidosis (principal); E86.0 Dehydration
CPT/HCPCS: 36415; 70450; 71045; 74176; 80048; 80053; 80143; 80177; 80179; 80306; 81001; 82077; 82375; 82803; 83605; 83690; 83880; 84484; 85007; 85025; 87040; 87086; 87186; 87635; 93005; 94761; 96365; 96366; 96375; 99284; 99285; 99291; A0425; A0427; A0434; A9270; J1250; J1720; J2060; J2405; J2543; J3370; J3411; J7030; J7050; J7070; J7120